=== PATIENT | female | born 1945 | race Caucasian/White ===

== ENCOUNTER 2017-07-26 17:56 | Inpatient (IN) ==
[2017-07-26] MEDS ORDERED: Isovue-370 500 ML INFUS..BTL IV ONE (18:07)
[2017-07-26] MEDS ORDERED: Ipratropium/Albuterol Neb 3 ML IH ONE (18:11)
--- NOTE | 2017-07-26 18:11 | Emergency Department Note ---
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 Patient has not been on chemotherapy secondary to complications. She did have a partial pneumonectomy secondary to her metastasis. She is undergone internal radiation which has caused her to have chronic diarrhea. The patient has had weakness and fatigue with decreased appetite for the last week. She presents to the emergency department today for episodes of chest pain in the left side of her chest which have lasted for minutes and self resolved. Patient describes approximately 3 episodes. Seen by PCP for the weakness which has not resolved and told to follow-up in a month. Patient concerned that she is not feeling well and now develops this chest pain. She has associated some breath which she blames on her emphysema. Patient received aspirin by EMS. Severity scale (1-10): 6 - Related Data Home Medications Medication Instructions Recorded Confirmed Citalopram [CeleXA] 40 mg PO DAILY 01/09/15 10/24/16 Fluticasone Propionate Nasal 2 spray NS DAILY 01/09/15 10/24/16 [Flonase] Ranitidine HCl [Zantac] 150 mg PO BID 01/09/15 10/24/16 [place] Oil/[place]-3 Fatty Acids 2 each PO TID 01/09/15 10/24/16 [Fish Oil 500 mg Softgel] Vitamin B Complex [B Complex] 1 each PO DAILY 01/09/15 10/24/16 Vitamin E 400 unit PO DAILY 01/09/15 10/24/16 Diltiazem HCl [Diltiazem 24Hr Cd] 120 mg PO DAILY 05/03/15 10/24/16 Bumetanide [Bumex] 2 mg PO DAILY 10/31/15 10/24/16 LORazepam [Ativan] 1 mg PO HS 10/31/15 10/24/16 Montelukast [Singulair] 10 mg PO DAILY 10/31/15 10/24/16 Budesonide/Formoterol 80/4.5 0 gm IH BIDR 04/25/16 10/24/16 [Symbicort 80/4.5] GuaiFENesin ER [Mucinex] 1,200 mg PO DAILY 10/24/16 10/24/16 Previous Rx's Medication Instructions Recorded predniSONE [Prednisone] 10 mg PO DAILY #21 tablet 11/25/14 Ibuprofen [Motrin] 600 mg PO Q8HR PRN #14 tablet 12/28/14 levoFLOXacin [Levaquin] 500 mg PO DAILY #7 tablet 10/24/16 Allergies Allergy/AdvReac Type Severity Reaction Status Date / Time acetaminophen [From Vicodin] Allergy Hives Verified 04/25/16 09:59 hydrocodone [From Vicodin] Allergy Hives Verified 04/25/16 09:59 Megestrol [From Megace] Allergy See Verified 04/25/16 09:59 Comments Penicillins Allergy Hives Verified 04/25/16 09:59 shellfish derived Allergy Hives Verified 04/25/16 09:59 Sulfa (Sulfonamide Allergy Hives Verified 04/25/16 09:59 Antibiotics) Review of Systems: CONSTITUTIONAL: Weakness and fatigue HEENT: Eyes: No visual changes. Ears, Nose, Throat: No hearing loss, difficulty talking or unable to swallow. SKIN: No rash or itching. CARDIOVASCULAR: Chest pain. RESPIRATORY: Shortness of breath without cough or sputum production GASTROINTESTINAL: Nausea and decreased appetite with diarrhea GENITOURINARY: No burning on urination or hematuria. NEUROLOGICAL: No headache, dizziness, syncope, paralysis, ataxia, numbness or tingling in the extremities. No change in bowel or bladder control. MUSCULOSKELETAL: No muscle pain, back pain, joint pain or stiffness. 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 Wearing home oxygen Head: Normocephalic Atraumatic Eyes: PERRL, EOMI ENT: Airway patent, no stridor Neck: supple, no meningismus Chest: Mild expiratory wheezing Cardiac: Regular rate and rhythm, no murmurs, rubs or gallops Abdomen: soft, nontender, nondistended; no guarding, rebound, or tenderness to percussion Musculoskeletal: Lymphedema to the left lower extremity which is acute on chronic Skin: No rash, normal skin tone Neuro: Alert and Oriented to person, place, and time; No focal deficit, CN 2-12 symmetric and intact - General Limitations: no limitations General appearance: alert, in no apparent distress Course Course Narrative: Patient's blood work, imaging, urinalysis has been ordered. The case was discussed with the hospitalist, Virgil, who is at bedside to hear about her case. Case will be signed out to the oncoming physician Dr. Whittington. The labs only to be followed up on any abnormal results will need to be addressed prior to placing the admission order. - Consultations Consultation #1: The case was discussed with the hospitalist, Dr. Herman, pending any abnormal tests or evaluation. Vital Signs Temperature 98.3 F 07/26/17 17:57 Pulse Rate 117 07/26/17 17:57 Respiratory Rate 22 07/26/17 17:57 Blood Pressure 140/108 07/26/17 17:57 O2 Sat by Pulse Oximetry 93 07/26/17 17:57 Temperature 98.3 F 07/26/17 17:57 Pulse Rate 117 07/26/17 17:57 Respiratory Rate 22 07/26/17 17:57 Blood Pressure 140/108 07/26/17 17:57 O2 Sat by Pulse Oximetry 93 07/26/17 17:57 Oxygen Delivery Oxygen Delivery Nasal Cannula Chest Pain - EKG Data EKG attestation: Yes I reviewed and interpreted this EKG. EKG results narrative: EKG shows atrial tachycardia with a rate of 111. HI 200. QRS 106. QTC 433. Patient has no significant ST elevations or depressions. Patient does have poor R-wave progression as well as deep S waves in the inferior leads. T-wave inversions in 1 and aVL. No significant changes compared to 11/25/14.
--- NOTE | 2017-07-26 18:16 | Emergency Department Note ---
Disposition Clinical Impression: Weakness Chest pain Qualifiers: Chest pain type: unspecified Qualified Code(s): R07.9 - Chest pain, unspecified Disposition: Still a Patient Condition: Fair Referrals: Greg Jay Jr, MD [Primary Care Provider] - Forms: ED Satisfaction Letter General Adult HPI - General Chief complaint: ED Chest Pain Stated complaint: Chest Pain Time Seen by Provider: 07/26/17 18:03 Source: EMS Limitations: no limitations - History of Present Illness Pain Scale: 6 - Related Data Home Medications Medication Instructions Recorded Confirmed Citalopram [CeleXA] 40 mg PO DAILY 01/09/15 10/24/16 Fluticasone Propionate Nasal 2 spray NS DAILY 01/09/15 10/24/16 [Flonase] Ranitidine HCl [Zantac] 150 mg PO BID 01/09/15 10/24/16 [place] Oil/[place]-3 Fatty Acids 2 each PO TID 01/09/15 10/24/16 [Fish Oil 500 mg Softgel] Vitamin B Complex [B Complex] 1 each PO DAILY 01/09/15 10/24/16 Vitamin E 400 unit PO DAILY 01/09/15 10/24/16 Diltiazem HCl [Diltiazem 24Hr Cd] 120 mg PO DAILY 05/03/15 10/24/16 Bumetanide [Bumex] 2 mg PO DAILY 10/31/15 10/24/16 LORazepam [Ativan] 1 mg PO HS 10/31/15 10/24/16 Montelukast [Singulair] 10 mg PO DAILY 10/31/15 10/24/16 Budesonide/Formoterol 80/4.5 0 gm IH BIDR 04/25/16 10/24/16 [Symbicort 80/4.5] GuaiFENesin ER [Mucinex] 1,200 mg PO DAILY 10/24/16 10/24/16 Previous Rx's Medication Instructions Recorded predniSONE [Prednisone] 10 mg PO DAILY #21 tablet 11/25/14 Ibuprofen [Motrin] 600 mg PO Q8HR PRN #14 tablet 12/28/14 levoFLOXacin [Levaquin] 500 mg PO DAILY #7 tablet 10/24/16 Allergies Allergy/AdvReac Type Severity Reaction Status Date / Time acetaminophen [From Vicodin] Allergy Hives Verified 02/16/17 09:59 hydrocodone [From Vicodin] Allergy Hives Verified 04/25/16 09:59 Megestrol [From Megace] Allergy See Verified 04/25/16 09:59 Comments Penicillins Allergy Hives Verified 04/25/16 09:59 shellfish derived Allergy Hives Verified 04/25/16 09:59 Sulfa (Sulfonamide Allergy Hives Verified 04/25/16 09:59 Antibiotics) Past Medical History - Past Medical History Medical history: Reports: asthma, cancer, COPD, hyperlipidemia, hypertension, peripheral artery disease, other Surgical history: Reports: appendectomy, hysterectomy Psychiatric history: Reports: anxiety [employer]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 - Social History Smoking Status: Never smoker Smokeless Tobacco Status: No Alcohol use: Reports: none Drug use: Reports: none Physical Exam - General Limitations: no limitations General appearance: alert, in no apparent distress Course Vital Signs Temperature 98.3 F 07/26/17 17:57 Pulse Rate 117 07/26/17 17:57 Respiratory Rate 22 07/26/17 17:57 Blood Pressure 140/108 07/26/17 17:57 O2 Sat by Pulse Oximetry 93 07/26/17 17:57 Temperature 98.3 F 07/26/17 17:57 Pulse Rate 117 07/26/17 17:57 Respiratory Rate 22 07/26/17 17:57 Blood Pressure 140/108 07/26/17 17:57 O2 Sat by Pulse Oximetry 93 07/26/17 17:57 Oxygen Delivery Oxygen Delivery Nasal Cannula Attestation Statement - Attestation Attestation: I examined this patient and my medical decision-making was reviewed with the Resident Physician. I agree with the documented findings, disposition and treatment plan as described except to the extent set forth below. Patient presents to the ED with generalized weakness. Not feeling well. Onset a couple weeks ago but is getting worse. She is having some chest pain. She short of breath. She is coughing. No fever but she still. She has a history of endometrial cancer that metastasized to her lung but is felt to be in remission. On examination she is in no acute distress. He is diminished but clear. She is noted to have 3+ pitting edema to her lower extremities left greater than right. Plan. Cardiac workup. Ultrasound rule out DVT. Likely admission.
[2017-07-26 18:48] LABS: Basophils % 0.2 %; Eosinophils % 0.1 %; Hematocrit 35.8 % (35.3-44.9); Hemoglobin 12.7 g/dL (11.5-15.4); Immature Granulocytes % 0.4 % (0-4); Lymphocytes # 0.9 K/mcL (0.6-4.6); Lymphocytes % 11.1 %; Mean Corpuscular HGB Conc 35.5 g/dL (31.6-35.5); Mean Corpuscular Hemoglobin 34.6 pg (28.0-33.3); Mean Corpuscular Volume 97.5 fL (83.0-100.0); Monocytes # 0.5 K/mcL (0.0-1.3); Monocytes % 6.1 %; Neutrophils # 6.8 K/mcL (1.6-8.9); Platelet Count 315 K/mcL (140-400); Red Blood Count 3.67 M/mcL (3.82-4.97); Red Cell Distribution Width 13.1 % (11.5-14.5); Segmented Neutrophils % 82.1 %
[2017-07-26 18:49] LABS: Bilirubin,Urine Negative (Negative); Blood,Urine Negative (Negative); Clarity,Urine Clear (Clear); Color,Urine Yellow (Yellow); Glucose,Urine (UA) Normal (Normal); Ketones,Urine Negative (Negative); Leukocyte Esterase,Urine Negative (Negative); Nitrite,Urine Negative (Negative); Protein,Urine Negative (Neg-Trace); Specific Gravity,Urine 1.009 (1.010-1.025); Urobilinogen,Urine Normal (Normal)
[2017-07-26 18:55] LABS: Prothrombin Time 11.2 Seconds (9.4-12.1)
[2017-07-26 19:10] LABS: Troponin I < 0.03 ng/mL (< 0.04)
[2017-07-26 19:11] LABS: Alanine Aminotransferase 20 Units/L (7-52); Albumin 4.2 g/dL (3.5-5.7); Albumin/Globulin Ratio 1.8 (1.1-2.2); Alkaline Phosphatase 45 Units/L (34-104); Aspartate Amino Transferase 18 Units/L (13-39); BUN/Creatinine Ratio 15 (6-26); Bilirubin,Total 0.4 mg/dL (0.3-1.0); Blood Urea Nitrogen 13 mg/dL (8-23); Calcium 9.7 mg/dL (8.6-10.3); Carbon Dioxide 25 mEq/L (23-29); Chloride 107 mEq/L (98-107); Globulin 2.4 g/dL (2.4-3.5); Glucose 132 mg/dL (70-105); Osmolality,Calculated 298 (280-300); Potassium 3.7 mEq/L (3.5-5.1); Sodium 143 mEq/L (136-145); Total Protein 6.6 g/dL (6.4-8.9); eGFR For African Americans > 60 (> 60); eGFR For Non-African Americans > 60 (> 60)
--- NOTE | 2017-07-26 19:13 | Internal Med History&Physical ---
Date of Encounter: 07/26/17 Time of Encounter: 08:00 Internal Medicine - H&P: HPI Chief complaint: CP History of present illness: Ms. Mcnulty is a 72 year old female Patient with PMH of metastatic endometrial cancer with metastasis to the liver and lung s/p partial pneumonectomy secondary to her metastasis. She is undergone chemotherapy as well as internal radiation which has caused her to have chronic diarrhea and was D/C. She has no significant cardiac history and presented today with 12-24 hrs history of chest discomfort and generalized weakness. She states the chest pain is intermittent, left-sided pressure like in character, She denies associated shortness of breath, nausea, vomiting, sweating. She also c/p of worsening of left LE edema. Chest x-ray was as CTA to R/O PE . Doppler of left lower extremity negative for DVT. Her ECGs with no significant ST-T wave changes, and cardiac enzyme is normal. Patient is admitted at this time for chest pain rule out ACS. Past Med Surg Social Fam HX - Past Medical History Medical history: asthma, cancer, COPD, hyperlipidemia, hypertension, peripheral artery disease, other Psychiatric history: anxiety - Past Surgical History Surgical History: appendectomy, hysterectomy - Social History Smoking Status: Never smoker Smokeless Tobacco Status: No Alcohol use: none Drug use: none - Family History Father Hx Family Cardiac Disorders: Yes Mother Hx Family Neurologic Disorders: Yes (dementia) Internal Medicine - H&P: Meds predniSONE [PredniSONE] 10 mg PO DAILY #21 tablet 11/25/14 [Rx] Vitamin B Complex [B Complex] 1 each PO DAILY 01/09/15 [History] Vitamin E 400 unit PO DAILY 01/09/15 [History] Bumetanide [Bumex] 1 mg PO BID 10/31/15 [History] LORazepam [Ativan] 1 mg PO HS 10/31/15 [History] Montelukast [Singulair] 10 mg PO DAILY 10/31/15 [History] GuaiFENesin ER [Mucinex] 1,200 mg PO BID 10/24/16 [History] Budesonide/Formoterol 160/4.5 [Symbicort 160/4.5] 2 puff IH BIDR 07/31/17 [ History] Calcium Polycarbophil [Fiber Laxative] 625 mg PO DAILY 07/31/17 [History] Citalopram Hydrobromide [Citalopram HBr] 40 mg PO DAILY 07/31/17 [History] Diltiazem CD (24hr) [Cardizem CD] 240 mg PO DAILY 07/31/17 [History] Fluticasone Propionate Nasal [Flonase] 2 spray NS DAILY 07/31/17 [History] [place]-3/Dha/Epa/Fish Oil [Fish Oil 1,000 mg Softgel] 2 cap PO TID 07/31/17 [ History] Potassium Chloride [K-Tab ER] 20 meq PO DAILY 07/31/17 [History] Ranitidine HCl [Heartburn Relief] 150 mg PO BID 07/31/17 [History] Aspirin 81 mg PO DAILY #30 tab.chew 08/04/17 [Rx] Atorvastatin [Lipitor] 20 mg PO HS #30 tablet 08/04/17 [Rx] Atorvastatin [Lipitor] 20 mg PO HS #60 tablet 08/04/17 [Rx] Doxycycline 100 mg PO DAILY #6 capsule 08/04/17 [Rx] Nitroglycerin 0.4 mg SL Q5MIN #30 tab.subl 08/04/17 [Rx] 3 Allergy/AdvReac Type Severity Reaction Status Date / Time hydrocodone [From Vicodin] Allergy Hives Verified 07/31/17 13:04 Megestrol [From Megace] Allergy See Verified 07/31/17 13:04 Comments Penicillins Allergy Hives Verified 07/31/17 13:04 shellfish derived Allergy Hives Verified 07/31/17 13:04 Sulfa (Sulfonamide Allergy Hives Verified 07/31/17 13:04 Antibiotics) All Systems PM: A 10-system review of systems was performed and is negative for pertinent findings except as documented above in the HPI. - Constitutional Constitutional: fatigue, lethargy, weakness, no chills, no fever(s), no night sweats - Cardiovascular Cardiovascular ROS IM: chest pain, edema, no diaphoresis, no dyspnea, no lightheadedness, no palpitations, no syncope - Respiratory Respiratory: no cough, no dyspnea, no wheezing, no excessive phlegm production - Gastrointestinal Gastrointestinal: no abdominal pain, no diarrhea, no hematemesis, no hematochezia, no melena, no nausea, no vomiting - Hematologic/Lymphatic Hematologic/Lymphatic: no easy bruising - Constitutional Vitals: Temp Pulse Resp BP Pulse Ox 98.3 F 117 18 140/108 98 07/26/17 17:57 07/26/17 17:57 07/26/17 18:41 07/26/17 17:57 07/26/17 18:41 General appearance: Present: A&O X 3 - Head Head exam: Present: atraumatic, normocephalic - Eye Eye exam: Present: PERRL, conjuntiva pink, sclera anicteric Pupils: Present: PERRL - Neck Neck exam general surgery: Present: supple, trachea midline. Absent: lymphadenopathy - Respiratory Respiratory exam: Present: CTAB. Absent: accessory muscle use, rales, rhonchi, wheezes - Cardiovascular Cardiovascular exam: Present: RRR, +S1, +S2. Absent: diastolic murmur, gallop, rubs, systolic murmur - GI/Abdominal GI/Abdominal exam: Present: normal bowel sounds, soft, no peritoneal signs. Absent: distended, tenderness - Extremities Exam Extremities exam: Present: warm, radial pulses palpable and symmetrical. Absent : calf tenderness, cyanotic, pedal edema - Neurological Exam Neurological exam: Present: CN II-XII intact, oriented X3, no focal deficits. Absent: pronater drift, facial droop, speech deficit Internal Med - H&P Results - Labs CBC & Chem 7: 07/27/17 08:36 07/27/17 08:36 Labs: Short CBC 07/26/17 Range/Units 18:04 WBC 8.2 (4.3-11.1) K/mcL Hgb 12.7 (11.5-15.4) g/dL Hct 35.8 (35.3-44.9) % Plt Count 315 (140-400) K/mcL Neutrophils # 6.8 (1.6-8.9) K/mcL BMP 07/26/17 18:04 Sodium 143 Potassium 3.7 Chloride 107 Carbon Dioxide 25 BUN 13 Creatinine 0.87 Glucose 132 H Calcium 9.7 Cardiac Enzymes 07/26/17 Range/Units 18:04 Troponin I < 0.03 (< 0.04) ng/mL Liver Function 07/26/17 Range/Units 18:04 Total Bilirubin 0.4 (0.3-1.0) mg/dL AST 18 (13-39) Units/L ALT 20 (7-52) Units/L Alkaline Phosphatase 45 (34-104) Units/L Albumin 4.2 (3.5-5.7) g/dL Urine 07/26/17 Range/Units 18:39 Urine Color Yellow (Yellow) Urine Clarity Clear (Clear) Urine pH 7.0 (5.0-8.0) pH Units Ur Specific [place] 1.009 L (1.010-1.025) Urine Protein Negative (Neg-Trace) mg/dL Urine Glucose (UA) Normal (Normal) mg/dL - Impressions ITS Impressions Chest X-Ray 07/26/17 18:04 IMPRESSION: Stable chest demonstrating elevation of the right hemidiaphragm. D/ / David Nagel MD / David Nagel MD Interpreting Provider: David Nagel MD - Assessment and plan (1) Chest pain Status: Acute Assessment and plan: ASSESSMENT: - Chest pain DD *CAD *Muskuloskeletal CP - myofascial strain, costochondritis *GERD *Esophageal spasm *Pericarditis - unlikely *Pneumonia - no infiltrate on CXR PLAN: - cardiac enzymes x 2 q 8 hr - EKG now and in AM - ASA - O2 by NC to keep SpO2 greater than 92% - UA - CBCD, BMP in AM - Fasting lipids - Morphine 2 mg IV q 2-4 hr PRN chest pain - Tylenol 650 mg PO q 4-6 hr PRN headache - Home meds (check list) - Heparin 5000 U SQ BID - 2D Echo - Cardiology consult Qualifiers: Chest pain type: unspecified Qualified Code(s): R07.9 - Chest pain, unspecified (2) Weakness Status: Acute Assessment and plan: We will consult PT and OT (3) Swelling Status: Chronic Assessment and plan: She stated that her LLEs edema was chronic due to chemotherapy and it actually improved after D/C it. LLEs Doppler U/S is negative for DVT. (4) Endometrial cancer Status: Chronic Assessment and plan: Both family at bedside and family declined onc consultation, she F/u at [place]. (5) COPD (chronic obstructive pulmonary disease) Status: Acute Assessment and plan: We will cont home inhalers, no evidence of acute exacerbation Qualifiers: COPD type: unspecified COPD Qualified Code(s): J44.9 - Chronic obstructive pulmonary disease, unspecified (6) Hypertension Status: Acute Assessment and plan: She is not on antihypertensive meds, blood pressure is reasonably controlled. Qualifiers: Hypertension type: essential hypertension Qualified Code(s): I10 - Essential (primary) hypertension (7) Anxiety Status: Acute (8) Hyperlipidemia Status: Acute Qualifiers: Hyperlipidemia type: unspecified Qualified Code(s): E78.5 - Hyperlipidemia , unspecified (9) DVT prophylaxis Status: Acute Assessment and plan: We will start SC heparin. - Time Spent With Patient Total time spent is greater than 50% in coordination of care (as documented) at patient's floor/unit and/or counseling patient:
[2017-07-26 19:24] LABS: Thyroid Stimulating Hormone 0.917 mcIU/mL (0.340-5.600)
--- NOTE | 2017-07-26 21:02 | Emergency Department Note ---
Disposition Clinical Impression: Weakness Chest pain Qualifiers: Chest pain type: unspecified Qualified Code(s): R07.9 - Chest pain, unspecified Disposition: Admitted As Inpatient Condition: Fair Time of Disposition: 21:56 Chest Pain HPI - General Chief Complaint: ED Chest Pain Stated Complaint: Chest Pain Time Seen by Provider: 07/26/17 18:03 Source: EMS Limitations: no limitations Vital Signs Reviewed: Yes Nursing Notes Reviewed: Yes - History of Present Illness Severity scale (1-10): 6 - Related Data Home Medications Medication Instructions Recorded Confirmed Citalopram [CeleXA] 40 mg PO DAILY 01/09/15 10/24/16 Fluticasone Propionate Nasal 2 spray NS DAILY 01/09/15 10/24/16 [Flonase] Ranitidine HCl [Zantac] 150 mg PO BID 01/09/15 10/24/16 [place] Oil/[place]-3 Fatty Acids 2 each PO TID 01/09/15 10/24/16 [Fish Oil 500 mg Softgel] Vitamin B Complex [B Complex] 1 each PO DAILY 01/09/15 10/24/16 Vitamin E 400 unit PO DAILY 01/09/15 10/24/16 Diltiazem HCl [Diltiazem 24Hr Cd] 120 mg PO DAILY 05/03/15 10/24/16 Bumetanide [Bumex] 2 mg PO DAILY 10/31/15 10/24/16 LORazepam [Ativan] 1 mg PO HS 10/31/15 10/24/16 Montelukast [Singulair] 10 mg PO DAILY 10/31/15 10/24/16 Budesonide/Formoterol 80/4.5 0 gm IH BIDR 04/25/16 10/24/16 [Symbicort 80/4.5] GuaiFENesin ER [Mucinex] 1,200 mg PO DAILY 10/24/16 10/24/16 Previous Rx's Medication Instructions Recorded predniSONE [Prednisone] 10 mg PO DAILY #21 tablet 11/25/14 Ibuprofen [Motrin] 600 mg PO Q8HR PRN #14 tablet 12/28/14 levoFLOXacin [Levaquin] 500 mg PO DAILY #7 tablet 10/24/16 Allergies Allergy/AdvReac Type Severity Reaction Status Date / Time acetaminophen [From Vicodin] Allergy Hives Verified 04/25/16 09:59 hydrocodone [From Vicodin] Allergy Hives Verified 04/25/16 09:59 Megestrol [From Megace] Allergy See Verified 04/25/16 09:59 Comments Penicillins Allergy Hives Verified 04/25/16 09:59 shellfish derived Allergy Hives Verified 04/25/16 09:59 Sulfa (Sulfonamide Allergy Hives Verified 04/25/16 09:59 Antibiotics) Chest Pain PMH - Past Medical History Medical history: Reports: asthma, cancer, COPD, hyperlipidemia, hypertension, peripheral artery disease, other Surgical history: Reports: appendectomy, hysterectomy Psychiatric history: Reports: anxiety [employer]OR [employer] LOGISTICS history: Reports: non-contributory - Social History Smoking Status: Never smoker Alcohol use: Reports: none Drug use: Reports: none Physical Exam - General Limitations: no limitations General appearance: alert, in no apparent distress - Head Head exam: atraumatic, normocephalic, normal inspection - Eye Eye exam: Present: normal appearance, PERRL, EOMI - ENT ENT exam: normal exam, normal oropharynx, mucous membranes moist - Neck Neck exam: Present: normal inspection, full ROM, trachea midline - Chest Chest inspection: Present: normal inspection, symmetric chest wall rise. Absent : tenderness, rash - Respiratory Respiratory exam: Present: normal lung sounds bilaterally - Cardiovascular Cardiovascular exam: Present: normal rhythm, tachycardia, normal heart sounds - Abdominal Exam Abdominal exam: Present: soft, Non-Tender. Absent: tenderness, distention, guarding, rebound, rigidity - Extremities Exam Extremities exam: Present: normal inspection, full ROM, pedal edema (edema of left leg). Absent: tenderness, calf tenderness - Neurological Exam Neurological exam: Present: alert, oriented X3 - Psychiatric Psychiatric exam: Present: normal affect, normal mood Course Course Narrative: Patient was a sign out from previous team, Dr. Woodward and Dr. Jamison, please see their notes for any additional detail. In summary, patient is a 72-year-old female who presented today due to chest discomfort and generalized weakness. She states that over the past 12-24 hours, she has had intermittent episodes of chest pain, left-sided, sitting as a pressure, lasting minutes at a time and then going away. Denies any worsening with exertion, denies any associated shortness of breath, nausea, vomiting, sweating. She denied any history of any previous [facility] or cardiac stents. During the same. She has also felt generally fatigued. Previous team had already ordered basic blood work, EKG, chest x-ray , CTA of the chest. Patient does have a history of metastatic endometrial cancer which prompted them to think about PE. Previous team had already talked with hospitalist prior to labs resulting and patient was accepted for admission by Dr. Herman. On my assessment, patient continued to have no chest pain while under my care. Lungs remained clear. Abdomen soft and nontender. Basic blood work showed no elevation in troponin, no major abnormality. Chest x-ray negative for any acute process. CTA negative for any PE or pneumonia. Doppler of left lower extremity was ordered due to edema, negative for DVT. Patient is admitted at this time for chest pain rule out. Chest X-Ray 07/26/17 18:04 IMPRESSION: Stable chest demonstrating elevation of the right hemidiaphragm. D/ / David Nagel MD / David Nagel MD Interpreting Provider: David Nagel MD Chest CTA 07/26/17 18:07 IMPRESSION: 1. No evidence of pulmonary embolism or other acute process in the chest. 2. No evidence of residual or recurrent neoplastic disease. 3. Status post left upper lobectomy. D/ / Shaquille Robertson MD / Shaquille Robertson MD Interpreting Provider: Shaquille Robertson MD Vital Signs Temperature 98.3 F 07/26/17 17:57 Pulse Rate 117 07/26/17 17:57 Respiratory Rate 22 07/26/17 17:57 Blood Pressure 140/108 07/26/17 17:57 O2 Sat by Pulse Oximetry 93 07/26/17 17:57 Temperature 98.3 F 07/26/17 17:57 Pulse Rate 70 07/26/17 21:15 Respiratory Rate 20 07/26/17 21:15 Blood Pressure 172/100 07/26/17 21:15 O2 Sat by Pulse Oximetry 94 07/26/17 21:15 Oxygen Delivery Oxygen Delivery Nasal Cannula Chest Pain - MDM Narrative Medical decision making narrative: Patient was a sign out from previous team, Dr. Woodward and Dr. Jamison, please see their notes for any additional detail. In summary, patient is a 72-year-old female who presented today due to chest discomfort and generalized weakness. She states that over the past 12-24 hours, she has had intermittent episodes of chest pain, left-sided, sitting as a pressure, lasting minutes at a time and then going away. Denies any worsening with exertion, denies any associated shortness of breath, nausea, vomiting, sweating. She denied any history of any previous [facility] or cardiac stents. During the same. She has also felt generally fatigued. Previous team had already ordered basic blood work, EKG, chest x-ray , CTA of the chest. Patient does have a history of metastatic endometrial cancer which prompted them to think about PE. Previous team had already talked with hospitalist prior to labs resulting and patient was accepted for admission by Dr. Herman. On my assessment, patient continued to have no chest pain while under my care. Lungs remained clear. Abdomen soft and nontender. Basic blood work showed no elevation in troponin, no major abnormality. Chest x-ray negative for any acute process. CTA negative for any PE or pneumonia. Doppler of left lower extremity was ordered due to edema, negative for DVT. Patient is admitted at this time for chest pain rule out. - Medical Records Medical records reviewed: Yes I reviewed the patient's medical records. - Lab Data Lab results reviewed: Yes I reviewed the patient's lab results. Result diagrams: 07/26/17 18:04 07/26/17 18:04 Lab Results 07/26/17 07/26/17 07/26/17 Range/Units 18:04 18:04 18:05 WBC 8.2 (4.3-11.1) K/mcL RBC 3.67 L (3.82-4.97) M/mcL Hgb 12.7 (11.5-15.4) g/dL Hct 35.8 (35.3-44.9) % MCV 97.5 (83.0-100.0) fL MCH 34.6 H (28.0-33.3) pg MCHC 35.5 (31.6-35.5) g/dL RDW 13.1 (11.5-14.5) % Plt Count 315 (140-400) K/mcL MPV 9.0 L (9.4-12.4) fL Immature Gran % 0.4 (0-4) % Seg Neutrophils % 82.1 % Lymphocytes % 11.1 % Monocytes % 6.1 % Eosinophils % 0.1 % Basophils % 0.2 % Neutrophils # 6.8 (1.6-8.9) K/mcL Lymphocytes # 0.9 (0.6-4.6) K/mcL Monocytes # 0.5 (0.0-1.3) K/mcL Eosinophils # 0.0 (0.0-0.6) K/mcL Basophils # 0.0 (0.0-0.2) K/mcL PT (9.4-12.1) Seconds INR APTT (26.0-36.0) Seconds Sodium 143 (136-145) mEq/L Potassium 3.7 (3.5-5.1) mEq/L Chloride 107 (98-107) mEq/L Carbon Dioxide 25 (23-29) mEq/L BUN 13 (8-23) mg/dL Creatinine 0.87 (0.60-1.20) mg/dL Est GFR ( Amer) > 60 (> 60) Est GFR (Non-Af Amer) > 60 (> 60) BUN/Creatinine Ratio 15 (6-26) Glucose 132 H (70-105) mg/dL Calculated Osmolality 298 (280-300) Calcium 9.7 (8.6-10.3) mg/dL Total Bilirubin 0.4 (0.3-1.0) mg/dL AST 18 (13-39) Units/L ALT 20 (7-52) Units/L Alkaline Phosphatase 45 (34-104) Units/L Troponin I < 0.03 (< 0.04) ng/mL B-Natriuretic Peptide 123 H (Less than 100) pg/mL Serum Total Protein 6.6 (6.4-8.9) g/dL Albumin 4.2 (3.5-5.7) g/dL Globulin 2.4 (2.4-3.5) g/dL Albumin/Globulin Ratio 1.8 (1.1-2.2) TSH 0.917 (0.340-5.600) mcIU/mL Urine Color (Yellow) Urine Clarity (Clear) Urine pH (5.0-8.0) pH Units Ur Specific [place] (1.010-1.025) Urine Protein (Neg-Trace) mg/dL Urine Glucose (UA) (Normal) mg/dL Urine Ketones (Negative) mg/dL Urine Blood (Negative) Urine Nitrite (Negative) Urine Bilirubin (Negative) Urine Urobilinogen (Normal) mg/dL Ur Leukocyte Esterase (Negative) Ur Culture Indicated? (NO) 07/26/17 07/26/17 Range/Units 18:09 18:39 WBC (4.3-11.1) K/mcL RBC (3.82-4.97) M/mcL Hgb (11.5-15.4) g/dL Hct (35.3-44.9) % MCV (83.0-100.0) fL MCH (28.0-33.3) pg MCHC (31.6-35.5) g/dL RDW (11.5-14.5) % Plt Count (140-400) K/mcL MPV (9.4-12.4) fL Immature Gran % (0-4) % Seg Neutrophils % % Lymphocytes % % Monocytes % % Eosinophils % % Basophils % % Neutrophils # (1.6-8.9) K/mcL Lymphocytes # (0.6-4.6) K/mcL Monocytes # (0.0-1.3) K/mcL Eosinophils # (0.0-0.6) K/mcL Basophils # (0.0-0.2) K/mcL PT 11.2 (9.4-12.1) Seconds INR 1.0 APTT 32.0 (26.0-36.0) Seconds Sodium (136-145) mEq/L Potassium (3.5-5.1) mEq/L Chloride (98-107) mEq/L Carbon Dioxide (23-29) mEq/L BUN (8-23) mg/dL Creatinine (0.60-1.20) mg/dL Est GFR ( Amer) (> 60) Est GFR (Non-Af Amer) (> 60) BUN/Creatinine Ratio (6-26) Glucose (70-105) mg/dL Calculated Osmolality (280-300) Calcium (8.6-10.3) mg/dL Total Bilirubin (0.3-1.0) mg/dL AST (13-39) Units/L ALT (7-52) Units/L Alkaline Phosphatase (34-104) Units/L Troponin I (< 0.04) ng/mL B-Natriuretic Peptide (Less than 100) pg/mL Serum Total Protein (6.4-8.9) g/dL Albumin (3.5-5.7) g/dL Globulin (2.4-3.5) g/dL Albumin/Globulin Ratio (1.1-2.2) TSH (0.340-5.600) mcIU/mL Urine Color Yellow (Yellow) Urine Clarity Clear (Clear) Urine pH 7.0 (5.0-8.0) pH Units Ur Specific [place] 1.009 L (1.010-1.025) Urine Protein Negative (Neg-Trace) mg/dL Urine Glucose (UA) Normal (Normal) mg/dL Urine Ketones Negative (Negative) mg/dL Urine Blood Negative (Negative) Urine Nitrite Negative (Negative) Urine Bilirubin Negative (Negative) Urine Urobilinogen Normal (Normal) mg/dL Ur Leukocyte Esterase Negative (Negative) Ur Culture Indicated? NO (NO) - Radiology Data Radiology results reviewed: Yes I reviewed the patient's radiology results. Chest X-Ray 07/26/17 18:04 IMPRESSION: Stable chest demonstrating elevation of the right hemidiaphragm. D/ / David Nagel MD / David Nagel MD Interpreting Provider: David Nagel MD Chest CTA 07/26/17 18:07 IMPRESSION: 1. No evidence of pulmonary embolism or other acute process in the chest. 2. No evidence of residual or recurrent neoplastic disease. 3. Status post left upper lobectomy. D/ / Shaquille Robertson MD / Shaquille Robertson MD Interpreting Provider: Shaquille Robertson MD - EKG Data EKG attestation: Yes I reviewed and interpreted this EKG.
[2017-07-26] MEDS ORDERED: Naloxone 0.4 MG/ML INJ IVP PRN (21:34)
[2017-07-27] MEDS ORDERED: *HR* LORazepam 1 MG TABLET PO PRN (01:04)
[2017-07-27] MEDS: 0.9 % Sodium Chloride 1,000 ML IVC SCH ×2 (01:12→09:55)
[2017-07-27] MEDS ORDERED: Famotidine 20 MG TABLET PO SCH (07:30)
[2017-07-27 07:42] VITALS: BP 160/84
[2017-07-27] MEDS ORDERED: Bumetanide 1 MG TABLET PO SCH (08:00)
[2017-07-27] MEDS ORDERED: *HR* Heparin 5,000 UNIT/ML VIAL SQ SCH (08:15)
[2017-07-27] MEDS ORDERED: Diltiazem CD (24hr) 120 MG CAPSULE PO SCH (09:00)
[2017-07-27] MEDS ORDERED: predniSONE 10 MG TABLET PO SCH (09:00)
[2017-07-27] MEDS ORDERED: Vitamin B Complex/Vit C/Vit E 1 EACH TABLET PO SCH (09:00)
[2017-07-27] MEDS ORDERED: Fluticasone Propionate Nasal 50 MCG/SPRAY BOTTLE NS SCH (09:00)
[2017-07-27 09:34] LABS: Basophils % 0.5 %; Eosinophils # 0.1 K/mcL (0.0-0.6); Eosinophils % 1.8 %; Hematocrit 34.3 % (35.3-44.9); Hemoglobin 11.9 g/dL (11.5-15.4); Immature Granulocytes % 0.3 % (0-4); Lymphocytes % 32.6 %; Mean Corpuscular HGB Conc 34.7 g/dL (31.6-35.5); Mean Corpuscular Hemoglobin 34.7 pg (28.0-33.3); Monocytes # 0.7 K/mcL (0.0-1.3); Monocytes % 11.8 %; Neutrophils # 3.3 K/mcL (1.6-8.9); Platelet Count 280 K/mcL (140-400); Red Blood Count 3.43 M/mcL (3.82-4.97); Red Cell Distribution Width 13.2 % (11.5-14.5)
[2017-07-27 09:38] LABS: INR 1.1; Prothrombin Time 12.1 Seconds (9.4-12.1)
[2017-07-27 09:41] LABS: Activated Partial Thrombo Time 31.3 Seconds (26.0-36.0)
[2017-07-27 09:50] LABS: Alanine Aminotransferase 16 Units/L (7-52); Albumin 3.5 g/dL (3.5-5.7); Albumin/Globulin Ratio 1.5 (1.1-2.2); Alkaline Phosphatase 34 Units/L (34-104); Aspartate Amino Transferase 16 Units/L (13-39); BUN/Creatinine Ratio 15 (6-26); Bilirubin,Total 0.5 mg/dL (0.3-1.0); Blood Urea Nitrogen 11 mg/dL (8-23); Calcium 8.8 mg/dL (8.6-10.3); Carbon Dioxide 27 mEq/L (23-29); Chloride 111 mEq/L (98-107); Chol/HDL Ratio 2.9 (0-4.9); Cholesterol 182 mg/dL (< 200); Globulin 2.4 g/dL (2.4-3.5); Glucose 74 mg/dL (70-105); HDL Cholesterol 62 mg/dL (40-59); LDL Cholesterol,Calculated 101 mg/dL (0-99); Magnesium 1.9 mg/dL (1.6-2.6); Osmolality,Calculated 296 (280-300); Phosphorous 3.2 mg/dL (2.7-4.5); Potassium 3.4 mEq/L (3.5-5.1); Sodium 144 mEq/L (136-145); Total Protein 5.9 g/dL (6.4-8.9); Triglycerides 95 mg/dL (< 150); eGFR For African Americans > 60 (> 60); eGFR For Non-African Americans > 60 (> 60)
[2017-07-27 09:59] LABS: Bilirubin,Urine Negative (Negative); Blood,Urine Negative (Negative); Clarity,Urine Clear (Clear); Color,Urine Yellow (Yellow); Glucose,Urine (UA) Normal (Normal); Ketones,Urine Negative (Negative); Leukocyte Esterase,Urine Negative (Negative); Nitrite,Urine Negative (Negative); Protein,Urine Negative (Neg-Trace); Specific Gravity,Urine 1.026 (1.010-1.025); Urobilinogen,Urine Normal (Normal)
[2017-07-27] MEDS ORDERED: Budesonide/Formoterol 80/4.5 MDI IH SCH (10:00)
--- NOTE | 2017-07-27 10:15 | Discharge Summary ---
- NOTES TO OUTPATIENT PROVIDER Notes to Outpatient Provider: Mrs. Mcnulty is a 72-year-old female presented with chest pain, CP rule out initiated; ECG negative for ischemia, troponins negative X3, CTA chest to rule out PE negative for PE. CP self-limited. Also concerning LLE swelling, Doppler evaluation negative for both deep vein/ superficial vein thrombosis. Patient has been instructed to f/u with PCP in one week Orders not resulted at time of discharge: Pending orders 07/27/17 08:06 Venous Doppler [EV venous imaging LE BI] Routine Date of Encounter: 07/27/17 Time of Encounter: 10:15 - Discharge Diagnosis (1) Chest pain Priority: Primary Status: Acute Assessment and Plan: ASSESSMENT: Atypical chest pain presentation-workup found to be negative, no prior history of MIs. Troponins negative 3, ECG without ischemic changes. Patient had CTA of chest ordered to rule out PE, found to be negative. LLE Doppler US ordered due to LLE swelling, found to be negative for both superficial/deep vein thrombosis. Patient with baseline shortness of breath, 2/2 partial lobectomy with cancer. Reports shortness of breath at baseline, no worse at this time. The patient is requesting to go home at this time. She has been informed us that would be beneficial for her to stay an additional day for further monitoring however, she continues to wish to discharge. Has remained stable throughout the stay and chest pain has subsided, weakness also improving. Patient being discharged with instructions to follow-up the ED showed chest pain returned. She has been instructed to see PCP within 1 week of discharge. Resume home medications and discharge. Qualifiers: Chest pain type: unspecified Qualified Code(s): R07.9 - Chest pain, unspecified (2) Endometrial cancer Priority: Secondary Status: Chronic Assessment and Plan: Family at bedside, both patient and family declined onc consultation, she F/u at [facility]. (3) Swelling Priority: Secondary Status: Chronic (4) Weakness Priority: Secondary Status: Acute Assessment and Plan: Patient reports that she feels like her weakness is improving since admission, has chronic weakness secondary to endometrial cancer with metastasis. (5) COPD (chronic obstructive pulmonary disease) Priority: Secondary Status: Acute Assessment and Plan: Not in acute exacerbation, resume bronchodilators Qualifiers: COPD type: unspecified COPD Qualified Code(s): J44.9 - Chronic obstructive pulmonary disease, unspecified (6) Hypertension Priority: Secondary Status: Acute Assessment and Plan: Stable, resume anti-HTN medications upon discharge Qualifiers: Qualified Code(s): I10 - Essential (primary) hypertension (7) Anxiety Priority: Secondary Status: Acute Assessment and Plan: Does not appear anxious this time, resume anxiolytics (8) Hyperlipidemia Priority: Secondary Status: Acute Qualifiers: Qualified Code(s): E78.5 - Hyperlipidemia, unspecified (9) DVT prophylaxis Priority: Secondary Status: Acute Hospital course: Ms. Mcnulty is a 72 year old female Discharge discussed with: patient, family, nurse - Time Spent with Patient Total time spent providing and/or coordinating discharge services: Less than 30 minutes - Discharge Medications Home Medications: predniSONE [PredniSONE] 10 mg PO DAILY #21 tablet 11/25/14 [Rx] Citalopram [CeleXA] 40 mg PO DAILY 01/09/15 [History] Fluticasone Propionate Nasal [Flonase] 2 spray NS DAILY 01/09/15 [History] Ranitidine HCl [Zantac] 150 mg PO BID 01/09/15 [History] [place] Oil/[place]-3 Fatty Acids [Fish Oil 500 mg Softgel] 2 each PO TID 01/09/15 [History] Vitamin B Complex [B Complex] 1 each PO DAILY 01/09/15 [History] Vitamin E 400 unit PO DAILY 01/09/15 [History] Diltiazem HCl [Diltiazem 24Hr Cd] 120 mg PO DAILY 05/03/15 [History] Bumetanide [Bumex] 1 mg PO BID 10/31/15 [History] LORazepam [Ativan] 1 mg PO HS 10/31/15 [History] Montelukast [Singulair] 10 mg PO DAILY 10/31/15 [History] Budesonide/Formoterol 80/4.5 [Symbicort 80/4.5] 2 puff IH BIDR 04/25/16 [ History] GuaiFENesin ER [Mucinex] 1,200 mg PO BID 10/24/16 [History] Allergies/Adverse Reactions: 3 Allergy/AdvReac Type Severity Reaction Status Date / Time acetaminophen [From Vicodin] Allergy Hives Verified 04/25/16 09:59 hydrocodone [From Vicodin] Allergy Hives Verified 04/25/16 09:59 Megestrol [From Megace] Allergy See Verified 04/25/16 09:59 Comments Penicillins Allergy Hives Verified 04/25/16 09:59 shellfish derived Allergy Hives Verified 04/25/16 09:59 Sulfa (Sulfonamide Allergy Hives Verified 04/25/16 09:59 Antibiotics) Date of admission: 07/26/17 21:34 Primary care physician: Greg Jay Jr, MD Discharging clinician: Ramakrishna Levy Anticipated date of discharge: 07/27/17 - Constitutional Vitals: Temp Pulse Resp BP Pulse Ox 97.6 F 71 16 160/84 95 07/27/17 07:39 07/27/17 07:39 07/27/17 08:23 07/27/17 07:39 07/27/17 08:23 General appearance: Present: A&O X 3 - Head Head exam: Present: atraumatic, normocephalic - Eye Eye exam: Present: PERRL, conjuntiva pink, sclera anicteric Pupils: Present: PERRL - Neck Neck exam general surgery: Present: supple, trachea midline. Absent: lymphadenopathy - Respiratory Respiratory exam: Present: decreased breath sounds, CTAB. Absent: accessory muscle use, rales, rhonchi, wheezes - Cardiovascular Cardiovascular exam: Present: RRR, +S1, +S2. Absent: diastolic murmur, gallop, rubs, systolic murmur - GI/Abdominal GI/Abdominal exam: Present: normal bowel sounds, soft, no peritoneal signs. Absent: distended, tenderness - Extremities Exam Extremities exam: Present: warm, radial pulses palpable and symmetrical. Absent : calf tenderness, cyanotic, pedal edema - Neurological Exam Neurological exam: Present: CN II-XII intact, oriented X3, no focal deficits. Absent: pronater drift, facial droop, speech deficit - Skin Skin exam: Present: dry, intact - Patient Status Disposition: Home, Self-Care Condition: Fair Overall status at discharge: patient is progressing back to baseline - Ambulatory Orders Ambulatory Orders: EV venous imaging LE LT Time Frame: 1 Week, Facility: [facility], Location: Cardiopulmonary Svc - Discharge Instructions Follow Up With: Greg Jay Jr, MD [Primary Care Provider] -
[2017-07-27] MEDS ORDERED: *HR* LORazepam 1 MG TABLET PO SCH (21:00)
--- NOTE | 2017-07-28 14:46 | Electrocardiograph Report ---
[place] [id number] Test Date: 2017-07-26 Pat Name: Violette Mcnulty Department: 102 Room: 3B32 Gender: F [employer]: : 1945 Requested By: [id number] Order Number: [id number] Reading MD: Fanta Chamberlain Measurements Intervals [place] Rate: 111 P: -54 TX: 200 QRS: -27 QRSD: 106 T: 113 QT: 368 QTc: 433 Interpretive Statements SUPRAVENTRICULAR TACHYCARDIA LEFT VENTRICULAR HYPERTROPHY AND ST-T CHANGE [VOLTAGE CRITERIA PLUS ST/T ABNORMALITY] POSSIBLE ANTEROSEPTAL MYOCARDIAL INFARCTION [30 ms Q WAVE IN V1-V4], OF INDETERMINATE AGE Electronically Signed On 07-28-2017 14:44:10 EDT by Fanta Chamberlain
== END 2017-07-27 11:43 | disposition home or self-care (01) | DRG 313 ==
LOC: EMEROO 17:56 → 3BNU 17:56
PROVIDERS: ADMIT Internal Medicine Nephrology; ATTEND Internal Medicine Nephrology

== ENCOUNTER 2017-07-31 13:01 | Inpatient (IN) ==
--- NOTE | 2017-07-31 14:09 | Emergency Department Note ---
Disposition Clinical Impression: Chest pain Qualifiers: Chest pain type: unspecified Qualified Code(s): R07.9 - Chest pain, unspecified Disposition: Admitted As Inpatient General Adult HPI - General Chief complaint: ED Chest Pain Stated complaint: chest,back, jaw pain Time Seen by Provider: 07/31/17 13:09 Source: patient Mode of arrival: ambulatory Nursing Notes Reviewed: Yes Vital Signs Reviewed: Yes - History of Present Illness HPI Narrative: Patient to ED complaining of chest pain. Patient seen Friday for the same and admitted but left prior to her workup being complete. She is having chest pressure going into her jaws and shoulders. Paresthesias in her arms. Nausea. Saw her network programmer today. She has an appointment with cardiology tomorrow but family is concerned she has been complaining and brought her back for reevaluation. Pain Scale: 4 - Related Data Home Medications Medication Instructions Recorded Confirmed Vitamin B Complex [B Complex] 1 each PO DAILY 01/09/15 07/26/17 Vitamin E 400 unit PO DAILY 01/09/15 07/26/17 Bumetanide [Bumex] 1 mg PO BID 10/31/15 07/26/17 LORazepam [Ativan] 1 mg PO HS 10/31/15 07/26/17 Montelukast [Singulair] 10 mg PO DAILY 10/31/15 07/26/17 GuaiFENesin ER [Mucinex] 1,200 mg PO BID 10/24/16 07/26/17 Budesonide/Formoterol 160/4.5 2 puff IH BIDR 07/31/17 07/31/17 [Symbicort 160/4.5] Calcium Polycarbophil [Fiber 625 mg PO DAILY 07/31/17 07/31/17 Laxative] Citalopram Hydrobromide 40 mg PO DAILY 07/31/17 07/31/17 [Citalopram HBr] Diltiazem CD (24hr) [Cardizem CD] 240 mg PO DAILY 07/31/17 07/31/17 Fluticasone Propionate Nasal 2 spray NS DAILY 07/31/17 07/31/17 [Flonase] [place]-3/Dha/Epa/Fish Oil [Fish Oil 2 cap PO TID 07/31/17 07/31/17 1,000 mg Softgel] Potassium Chloride [K-Tab ER] 20 meq PO DAILY 07/31/17 07/31/17 Ranitidine HCl [Heartburn Relief] 150 mg PO BID 07/31/17 07/31/17 Previous Rx's Medication Instructions Recorded predniSONE [PredniSONE] 10 mg PO DAILY #21 tablet 11/25/14 Allergies Allergy/AdvReac Type Severity Reaction Status Date / Time hydrocodone [From Vicodin] Allergy Hives Verified 07/31/17 13:04 Megestrol [From Megace] Allergy See Verified 07/31/17 13:04 Comments Penicillins Allergy Hives Verified 07/31/17 13:04 shellfish derived Allergy Hives Verified 07/31/17 13:04 Sulfa (Sulfonamide Allergy Hives Verified 07/31/17 13:04 Antibiotics) All systems ED: reviewed and negative except as stated. Constitutional: Denies: fever Cardiovascular: Reports: chest pain Respiratory: Reports: dyspnea. Denies: wheezes Gastrointestinal: Denies: vomiting, diarrhea Past Medical History - Past Medical History Attestation: Yes The following information was validated with the patient. 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 Hemolytically stable. - General General appearance: alert, in no apparent distress - Head Head exam: atraumatic - Eye Eye exam: Present: normal appearance - ENT ENT exam: normal exam - Chest Chest inspection: Present: normal inspection - Respiratory Respiratory exam: Present: normal lung sounds bilaterally. Absent: respiratory distress - Cardiovascular Cardiovascular exam: Present: regular rate, normal rhythm, normal heart sounds - Abdominal Exam Abdominal exam: Present: soft, Non-Tender - Neurological Exam Neurological exam: Present: alert, oriented X3 - Psychiatric Psychiatric exam: Present: normal affect - Skin Skin exam: Present: warm, dry Course Course Narrative: Reviewed her chart from Friday. Patient left prior to stress test. - Reevaluation(s) Reevaluation #1: Discussed with Dr. Herman who will admit the patient. EKG unchanged from prior. Patient not having any pain at this time. Time: 14:55 Reevaluation #2: Patient's chest x-ray read as possible pneumonia. Patient is not coughing. She is afebrile. Normal blood cell count. She also just came from network programmer office. I do not believe that she has pneumonia. Time: 15:36 Vital Signs Temperature 97.4 F L 07/31/17 13:04 Pulse Rate 61 07/31/17 13:04 Respiratory Rate 28 07/31/17 13:04 Blood Pressure 157/86 07/31/17 13:04 O2 Sat by Pulse Oximetry 93 07/31/17 13:04 Temperature 97.5 F L 07/31/17 16:37 Pulse Rate 67 07/31/17 16:37 Respiratory Rate 16 07/31/17 16:37 Blood Pressure 185/91 07/31/17 16:37 O2 Sat by Pulse Oximetry 93 07/31/17 16:37 Oxygen Delivery Oxygen Delivery Room Air Medical Decision Making - Lab Data Lab results reviewed: Yes I reviewed the patient's lab results. Result diagrams: 07/31/17 14:47 07/31/17 14:47 Lab Results 07/31/17 07/31/17 07/31/17 Range/Units 14:30 14:41 14:47 WBC 7.3 (4.3-11.1) K/mcL RBC 3.64 L (3.82-4.97) M/mcL Hgb 12.4 (11.5-15.4) g/dL Hct 36.1 (35.3-44.9) % MCV 99.2 (83.0-100.0) fL MCH 34.1 H (28.0-33.3) pg MCHC 34.3 (31.6-35.5) g/dL RDW 13.2 (11.5-14.5) % Plt Count 304 (140-400) K/mcL MPV 9.0 L (9.4-12.4) fL Immature Gran % 0.4 (0-4) % Seg Neutrophils % 54.5 % Lymphocytes % 32.2 % Monocytes % 11.3 % Eosinophils % 1.2 % Basophils % 0.4 % Neutrophils # 4.0 (1.6-8.9) K/mcL Lymphocytes # 2.3 (0.6-4.6) K/mcL Monocytes # 0.8 (0.0-1.3) K/mcL Eosinophils # 0.1 (0.0-0.6) K/mcL Basophils # 0.0 (0.0-0.2) K/mcL Nucleated RBCs/100 WBC 0.3 H (0) /100 WBC PT 11.7 (9.4-12.1) Seconds INR 1.1 APTT 32.0 (26.0-36.0) Seconds Sodium (136-145) mEq/L Potassium (3.5-5.1) mEq/L Chloride (98-107) mEq/L Carbon Dioxide (23-29) mEq/L BUN (8-23) mg/dL Creatinine (0.60-1.20) mg/dL Est GFR ( Amer) (> 60) Est GFR (Non-Af Amer) (> 60) BUN/Creatinine Ratio (6-26) Glucose (70-105) mg/dL Calculated Osmolality (280-300) Calcium (8.6-10.3) mg/dL Troponin I (< 0.04) ng/mL Urine Color Yellow (Yellow) Urine Clarity Clear (Clear) Urine pH 7.0 (5.0-8.0) pH Units Ur Specific [place] 1.014 (1.010-1.025) Urine Protein Negative (Neg-Trace) mg/dL Urine Glucose (UA) Normal (Normal) mg/dL Urine Ketones Negative (Negative) mg/dL Urine Blood Negative (Negative) Urine Nitrite Negative (Negative) Urine Bilirubin Negative (Negative) Urine Urobilinogen Normal (Normal) mg/dL Ur Leukocyte Esterase Negative (Negative) Ur Culture Indicated? NO (NO) 07/31/17 Range/Units 14:47 WBC (4.3-11.1) K/mcL RBC (3.82-4.97) M/mcL Hgb (11.5-15.4) g/dL Hct (35.3-44.9) % MCV (83.0-100.0) fL MCH (28.0-33.3) pg MCHC (31.6-35.5) g/dL RDW (11.5-14.5) % Plt Count (140-400) K/mcL MPV (9.4-12.4) fL Immature Gran % (0-4) % Seg Neutrophils % % Lymphocytes % % Monocytes % % Eosinophils % % Basophils % % Neutrophils # (1.6-8.9) K/mcL Lymphocytes # (0.6-4.6) K/mcL Monocytes # (0.0-1.3) K/mcL Eosinophils # (0.0-0.6) K/mcL Basophils # (0.0-0.2) K/mcL Nucleated RBCs/100 WBC (0) /100 WBC PT (9.4-12.1) Seconds INR APTT (26.0-36.0) Seconds Sodium 144 (136-145) mEq/L Potassium 3.5 (3.5-5.1) mEq/L Chloride 109 H (98-107) mEq/L Carbon Dioxide 27 (23-29) mEq/L BUN 12 (8-23) mg/dL Creatinine 0.72 (0.60-1.20) mg/dL Est GFR ( Amer) > 60 (> 60) Est GFR (Non-Af Amer) > 60 (> 60) BUN/Creatinine Ratio 17 (6-26) Glucose 85 (70-105) mg/dL Calculated Osmolality 297 (280-300) Calcium 9.5 (8.6-10.3) mg/dL Troponin I < 0.03 (< 0.04) ng/mL Urine Color (Yellow) Urine Clarity (Clear) Urine pH (5.0-8.0) pH Units Ur Specific [place] (1.010-1.025) Urine Protein (Neg-Trace) mg/dL Urine Glucose (UA) (Normal) mg/dL Urine Ketones (Negative) mg/dL Urine Blood (Negative) Urine Nitrite (Negative) Urine Bilirubin (Negative) Urine Urobilinogen (Normal) mg/dL Ur Leukocyte Esterase (Negative) Ur Culture Indicated? (NO) - Radiology Data Radiology results reviewed: Yes I reviewed the patient's radiology results. Chest X-Ray 07/31/17 14:01 IMPRESSION: Mild right basilar airspace disease, atelectasis versus pneumonia. D/ / Rebecca Mcmillan MD / Rebecca Mcmillan MD Interpreting Provider: Rebecca Mcmillan MD - EKG Data EKG #1 EKG attestation: Yes I reviewed and interpreted this EKG. EKG results narrative: Normal sinus at 61. Lateral ST depressions. Normal QRS. Normal axis. Unchanged from EKG July 26.
[2017-07-31 14:50] LABS: Bilirubin,Urine Negative (Negative); Blood,Urine Negative (Negative); Clarity,Urine Clear (Clear); Color,Urine Yellow (Yellow); Glucose,Urine (UA) Normal (Normal); Ketones,Urine Negative (Negative); Leukocyte Esterase,Urine Negative (Negative); Nitrite,Urine Negative (Negative); Protein,Urine Negative (Neg-Trace); Specific Gravity,Urine 1.014 (1.010-1.025); Urobilinogen,Urine Normal (Normal)
[2017-07-31 15:03] LABS: Basophils % 0.4 %; Eosinophils # 0.1 K/mcL (0.0-0.6); Eosinophils % 1.2 %; Hematocrit 36.1 % (35.3-44.9); Hemoglobin 12.4 g/dL (11.5-15.4); Immature Granulocytes % 0.4 % (0-4); Lymphocytes # 2.3 K/mcL (0.6-4.6); Lymphocytes % 32.2 %; Mean Corpuscular HGB Conc 34.3 g/dL (31.6-35.5); Mean Corpuscular Hemoglobin 34.1 pg (28.0-33.3); Mean Corpuscular Volume 99.2 fL (83.0-100.0); Monocytes # 0.8 K/mcL (0.0-1.3); Monocytes % 11.3 %; Nucleated Red Blood Cells 0.3 /100 WBC (0); Platelet Count 304 K/mcL (140-400); Red Blood Count 3.64 M/mcL (3.82-4.97); Red Cell Distribution Width 13.2 % (11.5-14.5); Segmented Neutrophils % 54.5 %
[2017-07-31 15:10] LABS: INR 1.1; Prothrombin Time 11.7 Seconds (9.4-12.1)
[2017-07-31 15:23] LABS: Troponin I < 0.03 ng/mL (< 0.04)
[2017-07-31 15:37] LABS: BUN/Creatinine Ratio 17 (6-26); Blood Urea Nitrogen 12 mg/dL (8-23); Calcium 9.5 mg/dL (8.6-10.3); Carbon Dioxide 27 mEq/L (23-29); Chloride 109 mEq/L (98-107); Glucose 85 mg/dL (70-105); Osmolality,Calculated 297 (280-300); Potassium 3.5 mEq/L (3.5-5.1); Sodium 144 mEq/L (136-145); eGFR For African Americans > 60 (> 60); eGFR For Non-African Americans > 60 (> 60)
[2017-07-31] MEDS ORDERED: Aspirin 325 MG TABLET PO ONE (15:39)
--- NOTE | 2017-07-31 16:51 | Internal Med History&Physical ---
Date of Encounter: 07/31/17 Time of Encounter: 16:51 Internal Medicine - H&P: HPI Chief complaint: CP History of present illness: Ms. Mcnulty is a 72 year old female Patient to ED complaining of chest pain. Patient seen Friday for the same and admitted but left prior to her workup being complete. She is having chest pressure going into her jaws and shoulders. Paresthesias in her arms. Nausea. 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 She has an appointment with cardiology tomorrow but family is concerned she has been complaining and brought her back for reevaluation. The patient was admitted for further evaluation and management to [facility]. Past Med Surg Social Fam HX - Past Medical History Medical history: asthma, cancer, COPD, hyperlipidemia, hypertension, peripheral artery disease, other Psychiatric history: anxiety - Past Surgical History Surgical History: appendectomy, hysterectomy - Social History Smoking Status: Never smoker Smokeless Tobacco Status: No Alcohol use: none Drug use: none - Family History Father Hx Family Cardiac Disorders: Yes Mother Hx Family Neurologic Disorders: Yes (dementia) Sister Hx Family Cardiac Disorders: Yes (SD) Hx Family Respiratory Disorders: Yes (COPD) Internal Medicine - H&P: Meds predniSONE [PredniSONE] 10 mg PO DAILY #21 tablet 11/25/14 [Rx] Vitamin B Complex [B Complex] 1 each PO DAILY 01/09/15 [History] Vitamin E 400 unit PO DAILY 01/09/15 [History] Bumetanide [Bumex] 1 mg PO BID 10/31/15 [History] LORazepam [Ativan] 1 mg PO HS 10/31/15 [History] Montelukast [Singulair] 10 mg PO DAILY 10/31/15 [History] GuaiFENesin ER [Mucinex] 1,200 mg PO BID 10/24/16 [History] Budesonide/Formoterol 160/4.5 [Symbicort 160/4.5] 2 puff IH BIDR 07/31/17 [ History] Calcium Polycarbophil [Fiber Laxative] 625 mg PO DAILY 07/31/17 [History] Citalopram Hydrobromide [Citalopram HBr] 40 mg PO DAILY 07/31/17 [History] Diltiazem CD (24hr) [Cardizem CD] 240 mg PO DAILY 07/31/17 [History] Fluticasone Propionate Nasal [Flonase] 2 spray NS DAILY 07/31/17 [History] [place]-3/Dha/Epa/Fish Oil [Fish Oil 1,000 mg Softgel] 2 cap PO TID 07/31/17 [ History] Potassium Chloride [K-Tab ER] 20 meq PO DAILY 07/31/17 [History] Ranitidine HCl [Heartburn Relief] 150 mg PO BID 07/31/17 [History] Aspirin 81 mg PO DAILY #30 tab.chew 08/04/17 [Rx] Atorvastatin [Lipitor] 20 mg PO HS #30 tablet 08/04/17 [Rx] Atorvastatin [Lipitor] 20 mg PO HS #60 tablet 08/04/17 [Rx] Doxycycline 100 mg PO DAILY #6 capsule 08/04/17 [Rx] Nitroglycerin 0.4 mg SL Q5MIN #30 tab.subl 08/04/17 [Rx] 3 Allergy/AdvReac Type Severity Reaction Status Date / Time hydrocodone [From Vicodin] Allergy Hives Verified 07/31/17 13:04 Megestrol [From Megace] Allergy See Verified 07/31/17 13:04 Comments Penicillins Allergy Hives Verified 07/31/17 13:04 shellfish derived Allergy Hives Verified 07/31/17 13:04 Sulfa (Sulfonamide Allergy Hives Verified 07/31/17 13:04 Antibiotics) All Systems PM: A 10-system review of systems was performed and is negative for pertinent findings except as documented above in the HPI. - Constitutional Constitutional: fatigue, no chills, no fever(s), no night sweats - Cardiovascular Cardiovascular ROS IM: chest pain, no diaphoresis, no dyspnea, no lightheadedness, no palpitations, no syncope - Respiratory Respiratory: no cough, no dyspnea, no wheezing, no excessive phlegm production - Gastrointestinal Gastrointestinal: no abdominal pain, no diarrhea, no hematemesis, no hematochezia, no melena, no nausea, no vomiting - Neurological Neurological ROS: no confusion, no convulsions, no focal weakness, no numbness, no tingling, no tremor(s) - Constitutional Vitals: Temp Pulse Resp BP Pulse Ox 97.5 F L 67 16 185/91 93 07/31/17 16:37 07/31/17 16:37 07/31/17 16:37 07/31/17 16:37 07/31/17 16:37 General appearance: Present: A&O X 3 - Head Head exam: Present: atraumatic, normocephalic - Neck Neck exam general surgery: Present: supple, trachea midline. Absent: lymphadenopathy - Respiratory Respiratory exam: Present: CTAB. Absent: accessory muscle use, rales, rhonchi, wheezes - Cardiovascular Cardiovascular exam: Present: RRR, +S1, +S2. Absent: diastolic murmur, gallop, rubs, systolic murmur - GI/Abdominal GI/Abdominal exam: Present: normal bowel sounds, soft, no peritoneal signs. Absent: distended, tenderness - Extremities Exam Extremities exam: Present: warm, radial pulses palpable and symmetrical. Absent : calf tenderness, cyanotic, pedal edema Internal Med - H&P Results - Labs CBC & Chem 7: 08/04/17 04:19 08/04/17 04:19 - Assessment and plan (1) Chest pain Status: Acute Assessment and plan: - Chest pain due to *CAD *Muskuloskeletal CP - myofascial strain, costochondritis *GERD *Esophageal spasm *Pericarditis - unlikely *Pneumonia - no infiltrate on CXR CAD Risk ([place] all that apply): HTN Obesity PVD LDL FMH DM HDL Smoking Age Sedentary PLAN: - cardiac enzymes x 2 q 8 hr - EKG now and in AM - ASA - O2 by NC to keep SpO2 greater than 92% - UA - Urine toxic screen - CBCD, BMP in AM - Fasting lipids - Tylenol 650 mg PO q 4-6 hr PRN headache - Home meds (check list) - Heparin 5000 U SQ BID - 2D Echo - Cardiology consult Qualifiers: Chest pain type: unspecified Qualified Code(s): R07.9 - Chest pain, unspecified (2) Hypertension Status: Acute Assessment and plan: We will cont home meds Qualifiers: Hypertension type: essential hypertension Qualified Code(s): I10 - Essential (primary) hypertension (3) Anxiety Status: Acute (4) Endometrial cancer Status: Chronic (5) COPD (chronic obstructive pulmonary disease) Status: Acute Assessment and plan: We will cont home meds Qualifiers: COPD type: unspecified COPD Qualified Code(s): J44.9 - Chronic obstructive pulmonary disease, unspecified (6) Hyperlipidemia Status: Acute Assessment and plan: We will cont home meds Qualifiers: Hyperlipidemia type: unspecified Qualified Code(s): E78.5 - Hyperlipidemia , unspecified (7) DVT prophylaxis Status: Acute Assessment and plan: We will place SCDs - Time Spent With Patient Total time spent is greater than 50% in coordination of care (as documented) at patient's floor/unit and/or counseling patient:
[2017-07-31] MEDS ORDERED: Naloxone 0.4 MG/ML INJ IVP PRN (21:02)
[2017-08-01 03:31] LABS: Hemoglobin 11.4 g/dL (11.5-15.4); Immature Granulocytes % 0.5 % (0-4); Red Cell Distribution Width 13.2 % (11.5-14.5)
[2017-08-01 03:38] LABS: Basophils % 0.5 %; Eosinophils # 0.1 K/mcL (0.0-0.6); Eosinophils % 2.4 %; Hematocrit 32.6 % (35.3-44.9); INR 1.1; Lymphocytes # 1.9 K/mcL (0.6-4.6); Lymphocytes % 31.5 %; Mean Corpuscular Hemoglobin 34.4 pg (28.0-33.3); Mean Corpuscular Volume 98.5 fL (83.0-100.0); Mean Platelet Volume 9.2 fL (9.4-12.4); Monocytes # 0.8 K/mcL (0.0-1.3); Monocytes % 12.9 %; Neutrophils # 3.1 K/mcL (1.6-8.9); Platelet Count 300 K/mcL (140-400); Prothrombin Time 11.7 Seconds (9.4-12.1); Red Blood Count 3.31 M/mcL (3.82-4.97); Segmented Neutrophils % 52.2 %
[2017-08-01 03:41] LABS: Activated Partial Thrombo Time 31.5 Seconds (26.0-36.0)
[2017-08-01 03:50] LABS: Alanine Aminotransferase 23 Units/L (7-52); Albumin 3.5 g/dL (3.5-5.7); Albumin/Globulin Ratio 1.5 (1.1-2.2); Alkaline Phosphatase 39 Units/L (34-104); Aspartate Amino Transferase 20 Units/L (13-39); BUN/Creatinine Ratio 14 (6-26); Bilirubin,Total 0.4 mg/dL (0.3-1.0); Blood Urea Nitrogen 10 mg/dL (8-23); Calcium 8.7 mg/dL (8.6-10.3); Carbon Dioxide 23 mEq/L (23-29); Chloride 112 mEq/L (98-107); Chol/HDL Ratio 3.1 (0-4.9); Cholesterol 182 mg/dL (< 200); Globulin 2.3 g/dL (2.4-3.5); Glucose 89 mg/dL (70-105); HDL Cholesterol 59 mg/dL (40-59); LDL Cholesterol,Calculated 101 mg/dL (0-99); Magnesium 1.9 mg/dL (1.6-2.6); Osmolality,Calculated 297 (280-300); Phosphorous 3.8 mg/dL (2.7-4.5); Potassium 3.6 mEq/L (3.5-5.1); Sodium 144 mEq/L (136-145); Total Protein 5.8 g/dL (6.4-8.9); Triglycerides 109 mg/dL (< 150); eGFR For African Americans > 60 (> 60); eGFR For Non-African Americans > 60 (> 60)
[2017-08-01] MEDS: *HR* Heparin 5,000 UNIT/ML VIAL SQ SCH ×2 (05:56→18:21)
[2017-08-01] MEDS: Budesonide/Formoterol 160/4.5 MDI IH SCH ×2 (10:51→20:01)
[2017-08-01] MEDS: Vitamin B Complex/Vit C/Vit E 1 EACH TABLET PO SCH (12:14)
[2017-08-01] MEDS: predniSONE 20 MG TABLET PO SCH (12:15)
[2017-08-01] MEDS: Diltiazem CD (24hr) 240 MG CAPSULE PO SCH (12:15)
[2017-08-01] MEDS: Patient Taking Own Medication 1 EACH PO SCH ×2 (15:13→20:36)
--- NOTE | 2017-08-01 18:24 | Internal Med Progress Note ---
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 Mastectomy -left upper lobectomy -continue outpatient follow-up with oncology and consult as needed (3) COPD (chronic obstructive pulmonary disease) Current Visit: No Status: Acute Assessment and plan: Stable at this time continue with bronchodilators cont with steroid taper bronchodilators Qualifiers: COPD type: unspecified COPD Qualified Code(s): J44.9 - Chronic obstructive pulmonary disease, unspecified (4) Hypertension Current Visit: No Status: Acute Assessment and plan: pt BP elevated patient has not taken BP meds restarted meds -hydralazine as needed Qualifiers: Hypertension type: essential hypertension Qualified Code(s): I10 - Essential (primary) hypertension (5) Anxiety Current Visit: No Status: Acute Assessment and plan: cont home meds (6) Hyperlipidemia Current Visit: No Status: Acute Assessment and plan: cont statin Qualifiers: Hyperlipidemia type: unspecified Qualified Code(s): E78.5 - Hyperlipidemia , unspecified (7) DVT prophylaxis Current Visit: No Status: Acute Assessment and plan: Heparin subcutaneous - Time Spent With Patient Total time spent is greater than 50% in coordination of care (as documented) at patient's floor/unit and/or counseling patient: - Subjective Interval history: Patient seen and examined at bedside presently denies any chest pain or shortness of breath just complains of fatigue. Her blood pressure has been elevated however she has not taken her medications morning. She was given a medication late. I did review treatment plan with patient who verbalized understanding. - Constitutional Vitals: Temp Pulse Resp BP Pulse Ox 98.6 F 78 17 174/110 97 08/01/17 15:03 08/01/17 15:03 08/01/17 15:03 08/01/17 15:03 08/01/17 15:03 General appearance: Present: A&O X 3 - Head Head exam: Present: atraumatic, normocephalic - Eye Eye exam: Present: PERRL, conjuntiva pink, sclera anicteric Pupils: Present: PERRL - Neck Neck exam general surgery: Present: supple, trachea midline. Absent: lymphadenopathy - Respiratory Respiratory exam: Present: CTAB. Absent: accessory muscle use, rales, rhonchi, wheezes - Cardiovascular Cardiovascular exam: Present: RRR, +S1, +S2. Absent: diastolic murmur, gallop, rubs, systolic murmur - GI/Abdominal GI/Abdominal exam: Present: normal bowel sounds, soft, no peritoneal signs. Absent: distended, tenderness Internal Medicine: Result - Labs CBC & Chem 7: 08/01/17 03:19 08/01/17 03:19 Labs: Short CBC 08/01/17 Range/Units 03:19 WBC 5.9 (4.3-11.1) K/mcL Hgb 11.4 L (11.5-15.4) g/dL Hct 32.6 L (35.3-44.9) % Plt Count 300 (140-400) K/mcL Neutrophils # 3.1 (1.6-8.9) K/mcL BMP 08/01/17 03:19 Sodium 144 Potassium 3.6 Chloride 112 H Carbon Dioxide 23 BUN 10 Creatinine 0.70 Glucose 89 Calcium 8.7 Cardiac Enzymes 07/31/17 08/01/17 08/01/17 Range/Units 21:31 03:19 09:08 Troponin I < 0.03 < 0.03 < 0.03 (< 0.04) ng/mL Liver Function 08/01/17 Range/Units 03:19 Total Bilirubin 0.4 (0.3-1.0) mg/dL AST 20 (13-39) Units/L ALT 23 (7-52) Units/L Alkaline Phosphatase 39 (34-104) Units/L Albumin 3.5 (3.5-5.7) g/dL - ABG Interpretation ABG results: PT/INR, D-dimer PT 11.7 Seconds (9.4-12.1) 08/01/17 03:19 Consult Discharge Plan - Plan Referrals: Greg Jay Jr, MD [Primary Care Provider] -
[2017-08-01] MEDS ORDERED: Acetaminophen 325 MG TABLET PO PRN (20:02)
[2017-08-01] MEDS: *HR* LORazepam 1 MG TABLET PO SCH (20:35)
[2017-08-01] MEDS: Famotidine 20 MG TABLET PO SCH (20:35)
[2017-08-01] MEDS: Bumetanide 1 MG TABLET PO SCH (20:35)
[2017-08-02] MEDS: *HR* Heparin 5,000 UNIT/ML VIAL SQ SCH ×2 (05:44→18:22)
[2017-08-02] MEDS ORDERED: Regadenoson 0.4 MG/5 ML SYRINGE IVP ONE (06:15)
[2017-08-02 07:27] LABS: BUN/Creatinine Ratio 15 (6-26); Blood Urea Nitrogen 8 mg/dL (8-23); Carbon Dioxide 23 mEq/L (23-29); Chloride 111 mEq/L (98-107); Glucose 78 mg/dL (70-105); Osmolality,Calculated 293 (280-300); Potassium 3.2 mEq/L (3.5-5.1); Sodium 143 mEq/L (136-145); eGFR For African Americans > 60 (> 60); eGFR For Non-African Americans > 60 (> 60)
[2017-08-02 07:43] LABS: Basophils % 0.3 %; Eosinophils % 0.4 %; Hematocrit 34.8 % (35.3-44.9); Hemoglobin 11.5 g/dL (11.5-15.4); Immature Granulocytes % 0.4 % (0-4); Lymphocytes # 2.3 K/mcL (0.6-4.6); Lymphocytes % 30.8 %; Mean Corpuscular Hemoglobin 32.6 pg (28.0-33.3); Mean Corpuscular Volume 98.6 fL (83.0-100.0); Mean Platelet Volume 9.3 fL (9.4-12.4); Monocytes % 13.4 %; Platelet Count 322 K/mcL (140-400); Red Blood Count 3.53 M/mcL (3.82-4.97); Red Cell Distribution Width 13.2 % (11.5-14.5); Segmented Neutrophils % 54.7 %
--- NOTE | 2017-08-02 08:07 | Electrocardiograph Report ---
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
[2017-08-02] MEDS ORDERED: Diltiazem CD (24hr) 240 MG CAPSULE PO SCH (09:00)
[2017-08-02] MEDS ORDERED: predniSONE 10 MG TABLET PO SCH (09:00)
[2017-08-02] MEDS ORDERED: Vitamin B Complex/Vit C/Vit E 1 EACH TABLET PO SCH (09:00)
[2017-08-02] MEDS: Bumetanide 1 MG TABLET PO SCH ×2 (09:26→21:48)
[2017-08-02] MEDS: predniSONE 20 MG TABLET PO SCH (09:27)
[2017-08-02] MEDS: Famotidine 20 MG TABLET PO SCH ×2 (09:27→21:48)
[2017-08-02] MEDS: Vitamin B Complex/Vit C/Vit E 1 EACH TABLET PO SCH (09:27)
[2017-08-02] MEDS: Diltiazem CD (24hr) 240 MG CAPSULE PO SCH (09:27)
[2017-08-02] MEDS: Patient Taking Own Medication 1 EACH PO SCH ×3 (09:28→21:48)
--- NOTE | 2017-08-02 10:11 | Internal Med Progress Note ---
Date of Encounter: 08/02/17 Time of Encounter: 10:10 - Assessment and plan (1) Chest pain Current Visit: Yes Status: Acute Assessment and plan: - Patient has undergone first half of a 2 day stress test. She will complete secondary tomorrow no chest pain. This time patient states she does feel better Troponins have been negative 3 EKG was some lateral ST depressions which was unchanged from previous Nitroglycerin as needed for chest pain We will make patient nothing by mouth after midnight for cardiac stress in a.m. 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 Mastectomy -left upper lobectomy -continue outpatient follow-up with oncology and consult as needed (3) COPD (chronic obstructive pulmonary disease) Current Visit: No Status: Acute Assessment and plan: Stable at this time continue with bronchodilators cont with steroid taper bronchodilators Qualifiers: COPD type: unspecified COPD Qualified Code(s): J44.9 - Chronic obstructive pulmonary disease, unspecified (4) Hypertension Current Visit: No Status: Acute Assessment and plan: Blood pressure back to baseline Qualifiers: Hypertension type: essential hypertension Qualified Code(s): I10 - Essential (primary) hypertension (5) Anxiety Current Visit: No Status: Acute Assessment and plan: cont home meds (6) Hyperlipidemia Current Visit: No Status: Acute Assessment and plan: cont statin Qualifiers: Hyperlipidemia type: unspecified Qualified Code(s): E78.5 - Hyperlipidemia , unspecified (7) DVT prophylaxis Current Visit: No Status: Acute Assessment and plan: Heparin subcutaneous - Time Spent With Patient Total time spent is greater than 50% in coordination of care (as documented) at patient's floor/unit and/or counseling patient: - Subjective Interval history: Patient seen and examined at bedside presently denies any chest pain or shortness of breath just cpmpleted the first half of 2 day stress test. I reviewed treatment plan with patient who verbalizes understanding - Constitutional Vitals: Temp Pulse Resp BP Pulse Ox 98.3 F 80 17 150/80 93 08/02/17 02:57 08/02/17 05:45 08/02/17 02:57 08/02/17 05:45 08/02/17 02:57 General appearance: Present: A&O X 3 - Head Head exam: Present: atraumatic, normocephalic - Eye Eye exam: Present: PERRL, conjuntiva pink, sclera anicteric Pupils: Present: PERRL - Neck Neck exam general surgery: Present: supple, trachea midline. Absent: lymphadenopathy - Respiratory Respiratory exam: Present: CTAB. Absent: accessory muscle use, rales, rhonchi, wheezes - Cardiovascular Cardiovascular exam: Present: RRR, +S1, +S2. Absent: diastolic murmur, gallop, rubs, systolic murmur - GI/Abdominal GI/Abdominal exam: Present: normal bowel sounds, soft, no peritoneal signs. Absent: distended, tenderness - Extremities Exam Extremities exam: Present: warm, radial pulses palpable and symmetrical. Absent : calf tenderness, cyanotic, pedal edema - Neurological Exam Neurological exam: Present: CN II-XII intact, oriented X3, no focal deficits. Absent: pronater drift, facial droop, speech deficit - Skin Skin exam: Present: dry, intact Internal Medicine: Result - Labs CBC & Chem 7: 08/02/17 06:02 08/02/17 06:02 Labs: Short CBC 08/02/17 Range/Units 06:02 WBC 7.4 (4.3-11.1) K/mcL Hgb 11.5 (11.5-15.4) g/dL Hct 34.8 L (35.3-44.9) % Plt Count 322 (140-400) K/mcL Neutrophils # 4.0 (1.6-8.9) K/mcL BMP 08/02/17 06:02 Sodium 143 Potassium 3.2 L Chloride 111 H Carbon Dioxide 23 BUN 8 Creatinine 0.55 L Glucose 78 Calcium 9.0 Cardiac Enzymes 08/01/17 Range/Units 09:08 Troponin I < 0.03 (< 0.04) ng/mL - ABG Interpretation ABG results: PT/INR, D-dimer PT 11.7 Seconds (9.4-12.1) 08/01/17 03:19 Consult Discharge Plan - Plan Referrals: Greg Jay Jr, MD [Primary Care Provider] -
[2017-08-02] MEDS: Budesonide/Formoterol 160/4.5 MDI IH SCH ×2 (10:27→20:00)
[2017-08-02] MEDS: Fluticasone Propionate Nasal 50 MCG/SPRAY BOTTLE NS SCH (11:52)
[2017-08-02] MEDS: *HR* LORazepam 1 MG TABLET PO SCH (21:48)
[2017-08-03] MEDS: *HR* Heparin 5,000 UNIT/ML VIAL SQ SCH ×2 (05:56→17:51)
[2017-08-03] MEDS: Budesonide/Formoterol 160/4.5 MDI IH SCH ×2 (07:47→20:31)
[2017-08-03 10:01] LABS: Basophils % 0.3 %; Eosinophils # 0.1 K/mcL (0.0-0.6); Eosinophils % 0.9 %; Hematocrit 37.5 % (35.3-44.9); Hemoglobin 12.8 g/dL (11.5-15.4); Immature Granulocytes % 0.5 % (0-4); Lymphocytes # 2.5 K/mcL (0.6-4.6); Lymphocytes % 31.6 %; Mean Corpuscular HGB Conc 34.1 g/dL (31.6-35.5); Mean Corpuscular Volume 99.7 fL (83.0-100.0); Mean Platelet Volume 9.2 fL (9.4-12.4); Monocytes # 0.9 K/mcL (0.0-1.3); Monocytes % 11.4 %; Neutrophils # 4.4 K/mcL (1.6-8.9); Platelet Count 323 K/mcL (140-400); Red Blood Count 3.76 M/mcL (3.82-4.97); Red Cell Distribution Width 13.4 % (11.5-14.5); Segmented Neutrophils % 55.3 %
[2017-08-03 10:21] LABS: BUN/Creatinine Ratio 15 (6-26); Blood Urea Nitrogen 13 mg/dL (8-23); Calcium 9.5 mg/dL (8.6-10.3); Carbon Dioxide 24 mEq/L (23-29); Chloride 109 mEq/L (98-107); Glucose 82 mg/dL (70-105); Osmolality,Calculated 293 (280-300); Potassium 3.5 mEq/L (3.5-5.1); Sodium 142 mEq/L (136-145); eGFR For African Americans > 60 (> 60); eGFR For Non-African Americans > 60 (> 60)
[2017-08-03] MEDS: Vitamin B Complex/Vit C/Vit E 1 EACH TABLET PO SCH (10:33)
[2017-08-03] MEDS: predniSONE 20 MG TABLET PO SCH (10:34)
[2017-08-03] MEDS: Famotidine 20 MG TABLET PO SCH ×2 (10:34→20:04)
[2017-08-03] MEDS: Diltiazem CD (24hr) 240 MG CAPSULE PO SCH (10:35)
[2017-08-03] MEDS: Bumetanide 1 MG TABLET PO SCH ×3 (10:39→20:09)
[2017-08-03] MEDS: Patient Taking Own Medication 1 EACH PO SCH ×3 (10:40→20:05)
[2017-08-03] MEDS: Fluticasone Propionate Nasal 50 MCG/SPRAY BOTTLE NS SCH (10:42)
--- NOTE | 2017-08-03 19:42 | Internal Med Progress Note ---
Date of Encounter: 08/03/17 Time of Encounter: 13:00 - Assessment and plan (1) Chest pain Current Visit: Yes Status: Acute Assessment and plan: - Patient has undergone second half a stress test which did show small sized mild intensity primary fixed perfusion defect involving the distal inferolateral wall with very mild worsening during stress. I did consult cardiology.-Patient denies any chest pain or short of breath at this time patient will be nothing by mouth after midnight Troponins have been negative 3 EKG was some lateral ST depressions which was unchanged from previous Nitroglycerin as needed for chest pain We will make patient nothing by mouth after midnight for cardiac stress in a.m. Cardiac echo CAD risk hypertension and obesity diabetes hyperlipidemia family history Qualifiers: Chest pain type: unspecified Qualified Code(s): R07.9 - Chest pain, unspecified (2) Endometrial cancer Current Visit: No Status: Chronic Assessment and plan: History of ovarian cervical endometrial cancer with lung mass originally diagnosed in 2013 she did undergo Megace as adjuvant therapy but she did not tolerate well restaging scans in March 2016 stable with out any reoccurrence. Mastectomy -left upper lobectomy -continue outpatient follow-up with oncology and consult as needed (3) COPD (chronic obstructive pulmonary disease) Current Visit: No Status: Acute Assessment and plan: Stable at this time no wheezing noted continue with bronchodilators cont with steroid taper bronchodilators Qualifiers: COPD type: unspecified COPD Qualified Code(s): J44.9 - Chronic obstructive pulmonary disease, unspecified (4) Hypertension Current Visit: No Status: Acute Assessment and plan: Appears to be around baseline we will continue with home medications Qualifiers: Hypertension type: essential hypertension Qualified Code(s): I10 - Essential (primary) hypertension (5) Anxiety Current Visit: No Status: Acute Assessment and plan: cont home meds (6) Hyperlipidemia Current Visit: No Status: Acute Assessment and plan: cont statin Qualifiers: Hyperlipidemia type: unspecified Qualified Code(s): E78.5 - Hyperlipidemia , unspecified (7) DVT prophylaxis Current Visit: No Status: Acute Assessment and plan: Heparin subcutaneous (8) Abnormal stress test Current Visit: Yes Status: Acute Assessment and plan: Patient had abnormal stress test today Small sized, mild intensity primarily fixed perfusion defect involving the distal inferolateral wall with very mild worsening during stress. * Other segments demonstrate normal rest and stress perfusion. Cardiology has been consulted Nothing by mouth after midnight - Time Spent With Patient Total time spent is greater than 50% in coordination of care (as documented) at patient's floor/unit and/or counseling patient: - Subjective Interval history: Patient seen and examined at bedside. Patient underwent second half of stress test today. Was notified that patient had abnormal stress. I did discuss this with the patient cardiology has been consulted. Patient will be nothing by mouth after midnight. Patient verbalized understanding and agreement to treatment plan. - Constitutional Vitals: Temp Pulse Resp BP Pulse Ox 98.0 F 74 16 145/83 97 08/03/17 18:47 08/03/17 18:47 08/03/17 18:47 08/03/17 18:47 08/03/17 18:47 General appearance: Present: A&O X 3 - Head Head exam: Present: atraumatic, normocephalic - Eye Eye exam: Present: PERRL, conjuntiva pink, sclera anicteric Pupils: Present: PERRL - Neck Neck exam general surgery: Present: supple, trachea midline. Absent: lymphadenopathy - Respiratory Respiratory exam: Present: CTAB. Absent: accessory muscle use, rales, rhonchi, wheezes - Cardiovascular Cardiovascular exam: Present: RRR, +S1, +S2. Absent: diastolic murmur, gallop, rubs, systolic murmur - GI/Abdominal GI/Abdominal exam: Present: normal bowel sounds, soft, no peritoneal signs. Absent: distended, tenderness - Extremities Exam Extremities exam: Present: warm, radial pulses palpable and symmetrical. Absent : calf tenderness, cyanotic, pedal edema - Neurological Exam Neurological exam: Present: CN II-XII intact, oriented X3, no focal deficits. Absent: pronater drift, facial droop, speech deficit - Skin Skin exam: Present: dry, intact Internal Medicine: Result - Labs CBC & Chem 7: 08/03/17 09:29 08/03/17 09:29 Labs: Short CBC 08/03/17 Range/Units 09:29 WBC 8.0 (4.3-11.1) K/mcL Hgb 12.8 (11.5-15.4) g/dL Hct 37.5 (35.3-44.9) % Plt Count 323 (140-400) K/mcL Neutrophils # 4.4 (1.6-8.9) K/mcL BMP 08/03/17 09:29 Sodium 142 Potassium 3.5 Chloride 109 H Carbon Dioxide 24 BUN 13 Creatinine 0.84 Glucose 82 Calcium 9.5 - ABG Interpretation ABG results: PT/INR, D-dimer PT 11.7 Seconds (9.4-12.1) 08/01/17 03:19 Consult Discharge Plan - Plan Referrals: Greg Jay Jr, MD [Primary Care Provider] -
[2017-08-03] MEDS: *HR* LORazepam 1 MG TABLET PO SCH (20:05)
[2017-08-04] MEDS: *HR* Heparin 5,000 UNIT/ML VIAL SQ SCH (06:09)
[2017-08-04 06:33] LABS: Basophils % 0.4 %; Hematocrit 32.4 % (35.3-44.9); Immature Granulocytes % 0.5 % (0-4); Lymphocytes # 2.3 K/mcL (0.6-4.6); Lymphocytes % 27.7 %; Mean Corpuscular Hemoglobin 33.8 pg (28.0-33.3); Mean Corpuscular Volume 99.7 fL (83.0-100.0); Mean Platelet Volume 9.5 fL (9.4-12.4); Monocytes # 0.9 K/mcL (0.0-1.3); Monocytes % 10.3 %; Neutrophils # 5.2 K/mcL (1.6-8.9); Platelet Count 290 K/mcL (140-400); Red Blood Count 3.25 M/mcL (3.82-4.97); Red Cell Distribution Width 13.2 % (11.5-14.5); Segmented Neutrophils % 61.1 %
[2017-08-04 06:44] LABS: BUN/Creatinine Ratio 23 (6-26); Blood Urea Nitrogen 17 mg/dL (8-23); Calcium 8.9 mg/dL (8.6-10.3); Carbon Dioxide 23 mEq/L (23-29); Chloride 111 mEq/L (98-107); Glucose 96 mg/dL (70-105); Osmolality,Calculated 293 (280-300); Potassium 3.5 mEq/L (3.5-5.1); Sodium 141 mEq/L (136-145); eGFR For African Americans > 60 (> 60); eGFR For Non-African Americans > 60 (> 60)
[2017-08-04] MEDS: Budesonide/Formoterol 160/4.5 MDI IH SCH (08:01)
[2017-08-04] MEDS ORDERED: predniSONE 20 MG TABLET PO SCH (09:00)
--- NOTE | 2017-08-04 09:15 | Cardiology Consult Note ---
<Sunil Isidro - Last Filed: 08/04/17 10:39> Date of Encounter: 08/04/17 Time of Encounter: 09:15 Assessment and Plan (1) Chest pain Status: Acute Per Cardiology: Atypical chest pain symptoms occurring at rest. Patient has experiencing increased shortness of breath with exertion from baseline and overall increasing fatigue. Trops negative 4. Stress test results reviewed with patient and family. I had lengthy discussion regarding potential further ischemic evaluation, however with stress test not showing clear abnormal findings in patient with present atypical presentation with negative troponins recommendations for conservative medical management for now especially since patient has severe shellfish allergy with reported hives and laryngeal edema. Current echo pending, assuming no significant findings cardiology will sign off and follow up in outpatient setting or surveillance. Discussed and reviewed with Dr. Allred who agrees with plan. Patient and family verbalized understanding and agreed with plan. All questions answered. Qualifiers: Chest pain type: unspecified Qualified Code(s): R07.9 - Chest pain, unspecified (2) Abnormal nuclear stress test Status: Acute Per Cardiology: Had 2 day exercise nuclear stress test showed "small sized, mild intensity primarily fixed perfusion defect involving the distal inferior lateral wall with very mild worsening during stress possibly representing ischemia". Has noted shellfish allergy with hives. Will add asa. Discussion w patient/family: The assessment and plan as outlined above was discussed with the patient and/or family members who expressed understanding and agreement. All questions were answered. Thank you for involving us in the care of your patient. Please call with any questions. History of Present Illness Consult date: 08/04/17 Requesting physician: Omayra Solano Consult reason: Abnormal stress test Chief complaint: Fatigue, SOB, CP History of present illness: Ms. Mcnulty is a 72 year old female with a relevant past medical history of reported endometrial/uterine/cervical cancer with history of chemotherapy and radiation treatments with subsequent lung metastasis with reported left lobe surgical procedure. She denies any past history of smoking, however exposure to secondhand smoke. Per review of medical records follows with pulmonology for asthma/COPD. She denies any diabetes mellitus history. Reports family history father dying from MT at age 73 and sister receiving for total stents in her late 60s. She has never had ischemic evaluation. Cardiology consult today for concern for possible abnormal stress test and evaluation of worsening shortness of breath at rest, increasing fatigue, and chest cramping symptoms. Patient seen with family at bedside. She reports chronic short of breath with exertion that has increased over the past few weeks. She reports she does utilize CPAP at home during the nighttime. She reports increasing fatigue over the past one month. Family member does report she does work still 40 hours per week. She does report left-sided cramping/fluttering sensations that started over the past week and lasts for a few seconds and subsided. She reports with the symptoms some left arm discomfort as well. She denies any active bleeding or blood loss. Reports his history of chronic lymphedema. She overall reports bilateral lower extremity swelling slightly worsened lately, however better than when it has been in the past. Past Med Surg Social Fam HX - Past Medical History Attestation: Yes The following information was validated with the patient. Source: patient, old records reviewed, obtained from family Medical history: asthma, cancer, COPD, hyperlipidemia, hypertension, peripheral artery disease, other Psychiatric history: anxiety - Past Surgical History Surgical History: appendectomy, hysterectomy - Social History Smoking Status: Never smoker Smokeless Tobacco Status: No Alcohol use: none Drug use: none - Family History Father Living Status: Age at : 65 Cause of : MT Hx Family Cardiac Disorders: Yes Mother Living Status: Age at : 82 Cause of : Dementia Hx Family Neurologic Disorders: Yes (dementia) Sister Hx Family Cardiac Disorders: Yes (MT) Hx Family Respiratory Disorders: Yes (COPD) Medications and Allergies predniSONE [PredniSONE] 10 mg PO DAILY #21 tablet 11/25/14 [Rx] Vitamin B Complex [B Complex] 1 each PO DAILY 01/09/15 [History] Vitamin E 400 unit PO DAILY 01/09/15 [History] Bumetanide [Bumex] 1 mg PO BID 10/31/15 [History] LORazepam [Ativan] 1 mg PO HS 10/31/15 [History] Montelukast [Singulair] 10 mg PO DAILY 10/31/15 [History] GuaiFENesin ER [Mucinex] 1,200 mg PO BID 10/24/16 [History] Budesonide/Formoterol 160/4.5 [Symbicort 160/4.5] 2 puff IH BIDR 07/31/17 [ History] Calcium Polycarbophil [Fiber Laxative] 625 mg PO DAILY 07/31/17 [History] Citalopram Hydrobromide [Citalopram HBr] 40 mg PO DAILY 07/31/17 [History] Diltiazem CD (24hr) [Cardizem CD] 240 mg PO DAILY 07/31/17 [History] Fluticasone Propionate Nasal [Flonase] 2 spray NS DAILY 07/31/17 [History] [place]-3/Dha/Epa/Fish Oil [Fish Oil 1,000 mg Softgel] 2 cap PO TID 07/31/17 [ History] Potassium Chloride [K-Tab ER] 20 meq PO DAILY 07/31/17 [History] Ranitidine HCl [Heartburn Relief] 150 mg PO BID 07/31/17 [History] Aspirin 81 mg PO DAILY #30 tab.chew 08/04/17 [Rx] Atorvastatin [Lipitor] 20 mg PO HS #30 tablet 08/04/17 [Rx] Atorvastatin [Lipitor] 20 mg PO HS #60 tablet 08/04/17 [Rx] Doxycycline 100 mg PO DAILY #6 capsule 08/04/17 [Rx] Nitroglycerin 0.4 mg SL Q5MIN #30 tab.subl 08/04/17 [Rx] 3 Allergy/AdvReac Type Severity Reaction Status Date / Time hydrocodone [From Vicodin] Allergy Hives Verified 07/31/17 13:04 Megestrol [From Megace] Allergy See Verified 07/31/17 13:04 Comments Penicillins Allergy Hives Verified 07/31/17 13:04 shellfish derived Allergy Hives Verified 07/31/17 13:04 Sulfa (Sulfonamide Allergy Hives Verified 07/31/17 13:04 Antibiotics) All Systems Review: The remainder of the systems were reviewed and are negative - Constitutional Constitutional: fatigue - Cardiovascular Cardiovascular: as per HPI, chest pain at rest, dyspnea at rest, leg edema Physical Examination Vital Signs, Last 4 Hours Temp Pulse Resp BP Pulse Ox 08/04/17 08:01 20 98 08/04/17 07:32 97.9 F 74 16 153/79 94 General: Conversant, No Apparent Distress HEENT: Atraumatic, Normocephaly, Mucus Membranes Moist Cardiac: Reg Rate and Rhythm, Normal S1 and S2, No Murmur Lungs: Normal Breath Sounds, No Wheeze, Rales, Rhonchi Neuro: Alert and responsive, No focal deficits noted Abdomen: Soft, Non-Tender, Other (obese) Skin: No rashes noted on visualized skin Musculoskeletal: No Chest Wall Tenderness Extremities: No Clubbing, No Cyanosis, Normal Pulses, Other (+1 nonpitting bilateral lower extremity edema left slightly greater than right) Results 08/04/17 04:19 08/04/17 04:19 Lab Results Laboratory Tests 07/31/17 07/31/17 08/01/17 14:47 21:31 03:19 Hgb Hct INR Creatinine Est GFR (Non-Af Amer) Troponin I < 0.03 < 0.03 < 0.03 B-Natriuretic Peptide LDL Cholesterol, Calc 08/01/17 08/01/17 08/01/17 03:19 03:19 03:19 Hgb Hct INR 1.1 Creatinine Est GFR (Non-Af Amer) Troponin I B-Natriuretic Peptide 144 H LDL Cholesterol, Calc 101 H 08/01/17 08/04/17 08/04/17 09:08 04:19 04:19 Hgb 11.0 L D Hct 32.4 L INR Creatinine 0.73 Est GFR (Non-Af Amer) > 60 Troponin I < 0.03 B-Natriuretic Peptide LDL Cholesterol, Calc ITS Impressions Chest X-Ray 07/31/17 14:01 IMPRESSION: Mild right basilar airspace disease, atelectasis versus pneumonia. D/ / Rebecca Mcmillan MD / Rebecca Mcmillan MD Interpreting Provider: Rebecca Mcmillan MD Active Medications Acetaminophen (Tylenol) 650 mg PO Q6HR PRN PRN Reason: Fever Stop: 01/31/18 20:03 Last Admin: 08/01/17 20:35 Dose: 650 mg Budesonide/Formoterol Fumarate (Symbicort) 2 puff IH BIDR DESI PRN Reason: Protocol Stop: 01/31/18 10:01 Last Admin: 08/04/17 08:01 Dose: 2 puff Bumetanide (Bumex) 1 mg PO BID DESI Stop: 01/31/18 21:01 Last Admin: 08/03/17 20:09 Dose: 1 mg Calcium Polycarbophil (Fibercon) 625 mg PO DAILY DESI Stop: 01/31/18 11:26 Last Admin: 08/03/17 10:34 Dose: 625 mg Citalopram Hydrobromide (Celexa) 40 mg PO DAILY DESI Stop: 01/31/18 11:31 Last Admin: 08/03/17 10:33 Dose: 40 mg Diltiazem HCl (Cardizem Cd) 240 mg PO DAILY DESI Stop: 01/31/18 11:31 Last Admin: 08/03/17 10:35 Dose: 240 mg Famotidine (Pepcid) 20 mg PO BID DESI Stop: 01/31/18 21:01 Last Admin: 08/03/17 20:04 Dose: 20 mg Fluticasone Propionate (Flonase) 100 mcg NS DAILY [facility] PRN Reason: Protocol Stop: 02/01/18 09:01 Last Admin: 08/03/17 10:42 Dose: 100 mcg Guaifenesin (Mucinex) 1,200 mg PO BID DESI Stop: 01/31/18 21:01 Last Admin: 08/03/17 20:04 Dose: 1,200 mg Heparin Sodium (Porcine) (Heparin) 5,000 unit SQ Q12HR DESI Stop: 01/31/18 06:01 Last Admin: 08/04/17 06:09 Dose: 5,000 unit Lorazepam (Ativan) 1 mg PO HS DESI Stop: 01/31/18 21:01 Last Admin: 08/03/17 20:05 Dose: 1 mg Montelukast Sodium (Singulair) 10 mg PO DAILY [facility]I Stop: 01/31/18 11:27 Last Admin: 08/03/17 10:34 Dose: 10 mg Naloxone HCl (Narcan) 0.4 mg IVP Q2MIN PRN PRN Reason: SEE COMMENTS Stop: 01/30/18 21:03 Pharmacy Profile Note (Patient Taking Own Medication) 2 each PO TID [facility] Stop: 01/31/18 15:01 Last Admin: 08/03/17 20:05 Dose: Not Given Potassium Chloride (Potassium Chloride) 20 meq PO DAILY [facility]I Stop: 01/31/18 11:28 Last Admin: 08/03/17 10:34 Dose: 20 meq Prednisone (Prednisone) 10 mg PO DAILY [facility] Stop: 08/09/17 09:01 Prednisone (Prednisone) 20 mg PO DAILY [facility] Stop: 08/06/17 09:01 Vitamin B Complex/Vit C/Vit E (Stresstab) 1 each PO DAILY [facility] Stop: 01/31/18 11:31 Last Admin: 08/03/17 10:33 Dose: 1 each Vitamin E (Vitamin E) 400 unit PO DAILY [facility] Stop: 01/31/18 11:31 Last Admin: 08/03/17 10:33 Dose: 400 unit - Imaging and Cardiology Stress Test: report reviewed Echo: pending, report reviewed (05/2014: Impressions: LVEF 55%. Normal left ventricular size and systolic function. There is evidence of mild diastolic dysfunction of the left ventricle. Normal right ventricular size and function. Trace aortic regurgitation. Estimated RVSP was 22 mmHg. No pulmonary hypertension. Clinical correlation is suggested. Left Ventricular Wall Motion : Rest Echo Findings All wall segments showed normal motion.) - EKG Interpretation EKG results cardiology: personally reviewed, no diagnostic ischemia Consult Discharge Plan - Plan Instructions: Doxycycline (By mouth), Aspirin (By mouth), Nitroglycerin, Rapid Release (By mouth), Atorvastatin (By mouth), Chest Pain (DC) Additional Instructions: Aspirin 81 mg daily Doxycycline 100mg Take BID on first day then daily for five days Referrals: Greg Jay Jr, MD [Primary Care Provider] - (Web request was sent for appointment ) iGta Allred [Partnered Physician] - (Cardio office will call for appointment - if you do not hear from in the next couple days please call ) Prescriptions: Nitroglycerin 0.4 mg SL Q5MIN #30 tab.subl Aspirin 81 mg PO DAILY #30 tab.chew Atorvastatin [Lipitor] 20 mg PO HS #30 tablet Atorvastatin [Lipitor] 20 mg PO HS #60 tablet Doxycycline 100 mg PO DAILY #6 capsule <Gita Allred - Last Filed: 08/05/17 11:22> Date of Encounter: 08/05/17 - Attending Attestation I have personally performed a face to face evaluation on this patient. I have reviewed and agree with the care plan. History and Exam by me shows: 72 YOF with atypical chest pain lasting few seconds at a time non exertional found to have an unremarkable stress test with preserved EF Patient had partial lung resection for Lung CA F/U as an OP if pain returns or worsens patient to contact our office immediaetly Assessment and Plan Discussion w patient/family: The assessment and plan as outlined above was discussed with the patient and/or family members who expressed understanding and agreement. All questions were answered. Thank you for involving us in the care of your patient. Please call with any questions. History of Present Illness History of present illness: Ms. Mcnulty is a 72 year old female All Systems Review: The remainder of the systems were reviewed and are negative Results 08/04/17 04:19 08/04/17 04:19
[2017-08-04] MEDS: Famotidine 20 MG TABLET PO SCH (09:20)
[2017-08-04] MEDS: Diltiazem CD (24hr) 240 MG CAPSULE PO SCH (09:20)
[2017-08-04] MEDS: Vitamin B Complex/Vit C/Vit E 1 EACH TABLET PO SCH (09:20)
[2017-08-04] MEDS: Patient Taking Own Medication 1 EACH PO SCH ×2 (09:21→13:57)
[2017-08-04] MEDS: Bumetanide 1 MG TABLET PO SCH (09:21)
[2017-08-04] MEDS: Fluticasone Propionate Nasal 50 MCG/SPRAY BOTTLE NS SCH (09:27)
[2017-08-04] MEDS ORDERED: Aspirin 81 MG TAB.CHEW PO SCH (11:00)
[2017-08-04 15:48] VITALS: BP 166/94
--- NOTE | 2017-08-04 15:48 | Discharge Summary ---
- NOTES TO OUTPATIENT PROVIDER Notes to Outpatient Provider: -Patient had abnormal stress test Small sized, mild intensity primarily fixed perfusion defect involving the. distal inferolateral wall with very mild worsening during stress. * Other segments demonstrate normal rest and stress perfusion. seen by cardiology- medical managment Orders not resulted at time of discharge: Pending orders 08/01/17 18:50 NM dileep perf SPECT multi [NM] Routine 08/05/17 04:00 CBC [Complete Blood Count] [HEME] AM 0400 Chem 7 [Basic Metabolic Panel] AM 0400 Date of Encounter: 08/04/17 Time of Encounter: 15:46 - Discharge Diagnosis (1) Chest pain Priority: Primary Status: Acute Qualifiers: Chest pain type: unspecified Qualified Code(s): R07.9 - Chest pain, unspecified (2) Endometrial cancer Priority: Secondary Status: Chronic (3) COPD (chronic obstructive pulmonary disease) Priority: Secondary Status: Acute Qualifiers: COPD type: unspecified COPD Qualified Code(s): J44.9 - Chronic obstructive pulmonary disease, unspecified (4) Hypertension Priority: Secondary Status: Acute Qualifiers: Hypertension type: essential hypertension Qualified Code(s): I10 - Essential (primary) hypertension (5) Anxiety Priority: Secondary Status: Acute (6) Hyperlipidemia Priority: Secondary Status: Acute Qualifiers: Hyperlipidemia type: unspecified Qualified Code(s): E78.5 - Hyperlipidemia , unspecified (7) Abnormal stress test Priority: Secondary Status: Acute Hospital course: Ms. Mcnulty is a 72 year old female past medical hx of asthma COPD HLD She was seen prior for CP however left before workup complete. She was then seen by washer machine and placed on steroids . She had been expereincing pain in her jaw radiaiting into her shoulders, paresthesia into arms. Troponins were negative x3 EKG with no acute ST T wave abnormality. She underwent a nuclear stress tets which did reveal Small sized, mild intensity primarily fixed perfusion defect involving the distal inferolateral wall with very mild worsening during stress. Cardiology was consulted since stress test not showing clear abnormal findings in patient with present atypical presentation with negative troponins recommendations for conservative medical management for now especially since patient has severe shellfish allergy with reported hives and laryngeal edema. Patient agreed Cardiology ok with discharge if echo results are normal, which did show EF 60% VEF 60%. Mild left ventricular diastolic dysfunction. Normal right ventricular structure and function. Aortic sclerosis.Mild mitral regurgitation.No pulmonary hypertension. Patient CXR did show atelectasis versus pneumonia. Will place on doxycycline, continue with steroids. Gave prescription for atorvastatin, nitroglycerin, ASA. Advised to continue home medications Advised patient to follow up with PCP cardiology and pulmonolgy. Patient verbalizes understanding She is hemodynamically stable and ready for discharge Discharge discussed with: patient - Time Spent with Patient Total time spent providing and/or coordinating discharge services: - Discharge Medications Prescriptions: Nitroglycerin 0.4 mg SL Q5MIN #30 tab.subl Aspirin 81 mg PO DAILY #30 tab.chew Atorvastatin [Lipitor] 20 mg PO HS #30 tablet Atorvastatin [Lipitor] 20 mg PO HS #60 tablet Doxycycline 100 mg PO DAILY #6 capsule Home Medications: predniSONE [PredniSONE] 10 mg PO DAILY #21 tablet 11/25/14 [Rx] Vitamin B Complex [B Complex] 1 each PO DAILY 01/09/15 [History] Vitamin E 400 unit PO DAILY 01/09/15 [History] Bumetanide [Bumex] 1 mg PO BID 10/31/15 [History] LORazepam [Ativan] 1 mg PO HS 10/31/15 [History] Montelukast [Singulair] 10 mg PO DAILY 10/31/15 [History] GuaiFENesin ER [Mucinex] 1,200 mg PO BID 10/24/16 [History] Budesonide/Formoterol 160/4.5 [Symbicort 160/4.5] 2 puff IH BIDR 07/31/17 [ History] Calcium Polycarbophil [Fiber Laxative] 625 mg PO DAILY 07/31/17 [History] Citalopram Hydrobromide [Citalopram HBr] 40 mg PO DAILY 07/31/17 [History] Diltiazem CD (24hr) [Cardizem CD] 240 mg PO DAILY 07/31/17 [History] Fluticasone Propionate Nasal [Flonase] 2 spray NS DAILY 07/31/17 [History] Santa-3/Dha/Epa/Fish Oil [Fish Oil 1,000 mg Softgel] 2 cap PO TID 07/31/17 [ History] Potassium Chloride [K-Tab ER] 20 meq PO DAILY 07/31/17 [History] Ranitidine HCl [Heartburn Relief] 150 mg PO BID 07/31/17 [History] Aspirin 81 mg PO DAILY #30 tab.chew 08/04/17 [Rx] Atorvastatin [Lipitor] 20 mg PO HS #30 tablet 08/04/17 [Rx] Atorvastatin [Lipitor] 20 mg PO HS #60 tablet 08/04/17 [Rx] Doxycycline 100 mg PO DAILY #6 capsule 08/04/17 [Rx] Nitroglycerin 0.4 mg SL Q5MIN #30 tab.subl 08/04/17 [Rx] Allergies/Adverse Reactions: 3 Allergy/AdvReac Type Severity Reaction Status Date / Time hydrocodone [From Vicodin] Allergy Hives Verified 07/31/17 13:04 Megestrol [From Megace] Allergy See Verified 07/31/17 13:04 Comments Penicillins Allergy Hives Verified 07/31/17 13:04 shellfish derived Allergy Hives Verified 07/31/17 13:04 Sulfa (Sulfonamide Allergy Hives Verified 07/31/17 13:04 Antibiotics) Date of admission: 07/31/17 21:02 Primary care physician: Greg Jay Jr, MD Consults: 08/03/17 13:59 Consult to Cardiology [CONS] Routine Comment: Consulting Provider: Cardiology Anna Reason for Consult: abnormal stress Time Notified: 13:59 Call Completed: Yes Discharging clinician: Omayra Solano Anticipated date of discharge: 08/04/17 - Constitutional Vitals: Temp Pulse Resp BP Pulse Ox 98 F 72 17 187/93 92 08/04/17 10:54 08/04/17 10:54 08/04/17 10:54 08/04/17 10:54 08/04/17 10:54 General appearance: Present: A&O X 3 - Head Head exam: Present: atraumatic, normocephalic - Eye Eye exam: Present: PERRL, conjuntiva pink, sclera anicteric Pupils: Present: PERRL - Neck Neck exam general surgery: Present: supple, trachea midline. Absent: lymphadenopathy - Respiratory Respiratory exam: Present: CTAB. Absent: accessory muscle use, rales, rhonchi, wheezes - Cardiovascular Cardiovascular exam: Present: RRR, +S1, +S2. Absent: diastolic murmur, gallop, rubs, systolic murmur - GI/Abdominal GI/Abdominal exam: Present: normal bowel sounds, soft, no peritoneal signs. Absent: distended, tenderness - Extremities Exam Extremities exam: Present: warm, radial pulses palpable and symmetrical. Absent : calf tenderness, cyanotic, pedal edema - Neurological Exam Neurological exam: Present: CN II-XII intact, oriented X3, no focal deficits. Absent: pronater drift, facial droop, speech deficit - Skin Skin exam: Present: dry, intact - Patient Status Disposition: Home, Self-Care Condition: Good Functional capacity at discharge: independent ambulation Overall status at discharge: patient is back to baseline - Discharge Instructions Instructions: Doxycycline (By mouth), Aspirin (By mouth), Nitroglycerin, Rapid Release (By mouth), Atorvastatin (By mouth), Chest Pain (DC) Follow Up With: Greg Jay Jr, MD [Primary Care Provider] - (Web request was sent for appointment ) Gita Allred [Partnered Physician] - (Cardio office will call for appointment - if you do not hear from in the next couple days please call ) Additional Instructions: Aspirin 81 mg daily Doxycycline 100mg Take BID on first day then daily for five days - Diet and Activity Activity: increase activity as tolerated Diet: low fat, low cholesterol, low salt diet
[2017-08-07] MEDS ORDERED: predniSONE 10 MG TABLET PO SCH (09:00)
== END 2017-08-04 17:05 | disposition home or self-care (01) | DRG 313 ==
LOC: 3BNU 13:01 → EMEROO 13:01 → 3BNU 16:04
PROVIDERS: ADMIT Hospitalist; ATTEND Hospitalist

== ENCOUNTER 2020-04-22 13:19 | Inpatient (IN) ==
[2020-04-22 13:49] LABS: Basophils % 0.1 %; Eosinophils % 0.1 %; Hematocrit 36.9 % (35.3-44.9); Hemoglobin 12.4 g/dL (11.5-15.4); Immature Granulocytes % 0.7 % (0-4); Lymphocytes # 2.2 K/mcL (0.6-4.6); Lymphocytes % 16.2 %; Mean Corpuscular HGB Conc 33.6 g/dL (31.6-35.5); Mean Corpuscular Hemoglobin 32.3 pg (28.0-33.3); Mean Corpuscular Volume 96.1 fL (83.0-100.0); Mean Platelet Volume 8.9 fL (9.4-12.4); Monocytes # 1.4 K/mcL (0.0-1.3); Monocytes % 10.5 %; Platelet Count 338 K/mcL (140-400); Red Blood Count 3.84 M/mcL (3.82-4.97); Red Cell Distribution Width 13.4 % (11.5-14.5); Segmented Neutrophils % 72.4 %; White Blood Count 13.8 K/mcL (4.3-11.1)
[2020-04-22 13:55] LABS: INR 1.1
[2020-04-22 13:58] LABS: Activated Partial Thrombo Time 25.7 Seconds (26.0-36.0)
[2020-04-22 14:10] LABS: BUN/Creatinine Ratio 18 (6-26); Blood Urea Nitrogen 15 mg/dL (8-23); Calcium 9.7 mg/dL (8.6-10.3); Carbon Dioxide 27 mEq/L (23-29); Chloride 101 mEq/L (98-107); Glucose 87 mg/dL (70-105); Osmolality,Calculated 294 (280-300); Potassium 2.8 mEq/L (3.5-5.1); Sodium 142 mEq/L (136-145); eGFR For African Americans > 60 (> 60); eGFR For Non-African Americans > 60 (> 60)
[2020-04-22 14:11] LABS: Troponin I < 0.03 ng/mL (< 0.04)
[2020-04-22] MEDS ORDERED: Isovue-370 500 ML BOTTLE IVP ONE (14:14)
[2020-04-22] MEDS ORDERED: Azithromycin 500 MG in 0.9 % Sodium Chloride 250 ML IVPB ONE (14:44)
[2020-04-22] MEDS ORDERED: cefTRIAXone 1,000 MG in 0.9 % Sodium Chloride Mini Bag 100 ML IVPB ONE (14:44)
[2020-04-22 14:48] LABS: ABG Base Excess 7 mEq/L (-2 to 3); ABG HCO3 30 mEq/L (21-27); ABG Oxygen Saturation 92 % (95-98); ABG PCO2 38 mmHg (35-45); ABG PH 7.51 pH Units (7.32-7.45); ABG PO2 58 mmHg (85-104); ABG TCO2 32 mEq/L (20-26)
[2020-04-22] MEDS ORDERED: Acetaminophen 325 MG TABLET PO PRN (14:59)
[2020-04-22] MEDS ORDERED: Naloxone 0.4 MG/ML INJ IVP PRN (14:59)
[2020-04-22 15:06] LABS: Adenovirus Not Detected (Not Detect); Bordetella Pertussis Not Detected (Not Detect); Chlamydophila pneumoniae Not Detected (Not Detect); Coronavirus 229E Not Detected (Not Detect); Coronavirus HKU1 Not Detected (Not Detect); Coronavirus NL63 Not Detected (Not Detect); Coronavirus OC43 Not Detected (Not Detect); Human Metapneumovirus Not Detected (Not Detect); Human Rhinovirus/Enterovirus Not Detected (Not Detect); Influenza A Subtype 2009 H1 Not Detected (Not Detect); Influenza B Not Detected (Not Detect); Mycoplasma pneumoniae Not Detected (Not Detect); Parainfluenza Virus 1 Not Detected (Not Detect); Parainfluenza Virus 2 Not Detected (Not Detect); Parainfluenza Virus 3 Not Detected (Not Detect); Parainfluenza Virus 4 Not Detected (Not Detect); Respiratory Syncytial Virus Not Detected (Not Detect); SARS-CoV-2 Not Detected (Not Detect)
[2020-04-22 15:40] LABS: Lactate Dehydrogenase 214 Units/L (140-271); Magnesium 1.6 mg/dL (1.6-2.6); Total Protein 6.5 g/dL (6.4-8.9)
[2020-04-22] MEDS ORDERED: Potassium Chloride 40 MEQ, Lidocaine 1% 2 ML in 0.9 % Sodium Chloride 500 ML IVPB ONE (17:17)
[2020-04-22] MEDS ORDERED: MethylPREDNISolone 40 MG/ML VIAL IVP ONE (17:32)
[2020-04-22] MEDS ORDERED: Ipratropium/Albuterol Neb 3 ML IH ONE (17:32)
[2020-04-22] MEDS: *HR* Heparin 5,000 UNIT/ML VIAL SQ SCH (17:55)
[2020-04-22] MEDS: Ondansetron 4 MG/2 ML VIAL IVP PRN (21:51)
[2020-04-22] MEDS: *HR* LORazepam 1 MG TABLET PO PRN (21:51)
[2020-04-22] MEDS: Ipratropium/Albuterol Neb 3 ML IH SCH (22:28)
[2020-04-22] MEDS: Famotidine 20 MG TABLET PO SCH (23:38)
[2020-04-23] MEDS ORDERED: Melatonin 3 MG TABLET PO PRN (00:52)
[2020-04-23 03:27] LABS: Hematocrit 35.1 % (35.3-44.9); Hemoglobin 11.6 g/dL (11.5-15.4); Mean Corpuscular Hemoglobin 31.9 pg (28.0-33.3); Mean Corpuscular Volume 96.4 fL (83.0-100.0); Mean Platelet Volume 9.1 fL (9.4-12.4); Platelet Count 338 K/mcL (140-400); Red Blood Count 3.64 M/mcL (3.82-4.97); Red Cell Distribution Width 13.5 % (11.5-14.5); White Blood Count 8.3 K/mcL (4.3-11.1)
[2020-04-23 03:50] LABS: BUN/Creatinine Ratio 20 (6-26); Blood Urea Nitrogen 14 mg/dL (8-23); Calcium 8.9 mg/dL (8.6-10.3); Carbon Dioxide 26 mEq/L (23-29); Chloride 104 mEq/L (98-107); Glucose 154 mg/dL (70-105); Osmolality,Calculated 294 (280-300); Sodium 140 mEq/L (136-145); eGFR For African Americans > 60 (> 60); eGFR For Non-African Americans > 60 (> 60)
[2020-04-23] MEDS: Ipratropium/Albuterol Neb 3 ML IH SCH ×4 (03:57→21:53)
[2020-04-23] MEDS: *HR* Heparin 5,000 UNIT/ML VIAL SQ SCH (05:36)
[2020-04-23] MEDS: Ondansetron 4 MG/2 ML VIAL IVP PRN ×2 (07:35→17:37)
[2020-04-23] MEDS ORDERED: MethylPREDNISolone 40 MG/ML VIAL IVP SCH (09:00)
[2020-04-23] MEDS ORDERED: Isovue-370 500 ML BOTTLE IVP ONE (09:51)
[2020-04-23] MEDS: Furosemide 40 MG/4 ML VIAL IVP SCH ×2 (12:20→20:18)
[2020-04-23] MEDS: Famotidine 20 MG TABLET PO SCH ×2 (12:20→19:55)
[2020-04-23] MEDS: *HR* LORazepam 1 MG TABLET PO PRN (12:22)
[2020-04-23] MEDS: *HR* OxyCODONE Immed Rel 5 MG TABLET PO PRN (19:55)
[2020-04-23] MEDS ORDERED: *HR* Labetalol 20 MG/4 ML SYRINGE IVP ONE (20:25)
[2020-04-24] MEDS: Ipratropium/Albuterol Neb 3 ML IH SCH ×4 (04:13→22:02)
[2020-04-24] MEDS ORDERED: *HR* Enoxaparin 40 MG/0.4 ML SYRINGE SQ SCH (06:00)
[2020-04-24] MEDS ORDERED: predniSONE 20 MG TABLET PO SCH (09:00)
[2020-04-24] MEDS: Furosemide 40 MG/4 ML VIAL IVP SCH (09:43)
[2020-04-24] MEDS: Famotidine 20 MG TABLET PO SCH (09:44)
[2020-04-24 11:12] LABS: BUN/Creatinine Ratio 19 (6-26); Blood Urea Nitrogen 19 mg/dL (8-23); Calcium 9.4 mg/dL (8.6-10.3); Carbon Dioxide 28 mEq/L (23-29); Chloride 102 mEq/L (98-107); Glucose 84 mg/dL (70-105); Magnesium 2.1 mg/dL (1.6-2.6); Osmolality,Calculated 295 (280-300); Potassium 3.4 mEq/L (3.5-5.1); Sodium 142 mEq/L (136-145); eGFR For African Americans > 60 (> 60); eGFR For Non-African Americans 55 (> 60)
[2020-04-24] MEDS ORDERED: *HR* LORazepam 1 MG TABLET PO PRN (14:46)
[2020-04-24] MEDS: Ondansetron 4 MG/2 ML VIAL IVP PRN (18:04)
[2020-04-24] MEDS: *HR* OxyCODONE Immed Rel 5 MG TABLET PO PRN ×2 (18:04→22:00)
[2020-04-24] MEDS ORDERED: *HR* LORazepam 1 MG TABLET PO SCH (21:00)
[2020-04-24] MEDS: Melatonin 3 MG TABLET PO SCH (21:55)
[2020-04-25] MEDS: Ondansetron 4 MG/2 ML VIAL IVP PRN (02:08)
[2020-04-25] MEDS: *HR* OxyCODONE Immed Rel 5 MG TABLET PO PRN (02:08)
[2020-04-25 04:05] LABS: BUN/Creatinine Ratio 22 (6-26); Blood Urea Nitrogen 19 mg/dL (8-23); Calcium 9.2 mg/dL (8.6-10.3); Carbon Dioxide 28 mEq/L (23-29); Chloride 103 mEq/L (98-107); Glucose 97 mg/dL (70-105); Osmolality,Calculated 294 (280-300); Potassium 3.7 mEq/L (3.5-5.1); Sodium 141 mEq/L (136-145); eGFR For African Americans > 60 (> 60); eGFR For Non-African Americans > 60 (> 60)
[2020-04-25 04:07] LABS: Hematocrit 38.7 % (35.3-44.9); Hemoglobin 12.5 g/dL (11.5-15.4); Mean Corpuscular HGB Conc 32.3 g/dL (31.6-35.5); Mean Platelet Volume 9.3 fL (9.4-12.4); Platelet Count 408 K/mcL (140-400); Red Blood Count 3.91 M/mcL (3.82-4.97); Red Cell Distribution Width 14.1 % (11.5-14.5); White Blood Count 12.4 K/mcL (4.3-11.1)
[2020-04-25] MEDS: Ipratropium/Albuterol Neb 3 ML IH SCH ×4 (04:08→21:50)
[2020-04-25 04:22] LABS: Carcinoembryonic Antigen 85.3 ng/mL (Less than 5.0)
[2020-04-25] MEDS ORDERED: *HR* Succinylcholine 200 MG/10 ML VIAL IVP ONE (08:16)
[2020-04-25] MEDS ORDERED: *HR* Propofol 200 MG/20 ML VIAL IVP ONE (08:16)
[2020-04-25] MEDS ORDERED: Dexamethasone 4 MG/ML VIAL ONE (08:16)
[2020-04-25] MEDS ORDERED: *HR* Rocuronium Bromide 50 MG/5 ML VIAL ONE (08:16)
[2020-04-25] MEDS ORDERED: *HR* FentaNYL (PF) 100 MCG/2 ML VIAL ONE (08:16)
[2020-04-25] MEDS ORDERED: Ondansetron 4 MG/2 ML VIAL ONE (08:16)
[2020-04-25] MEDS ORDERED: Lidocaine -MPF 4% 5 ML AMPUL ONE (08:16)
[2020-04-25] MEDS ORDERED: Lidocaine -MPF 2% 2 ML VIAL ONE (08:16)
[2020-04-25] MEDS ORDERED: Lidocaine 1% 0 ML ONE (08:26)
[2020-04-25] MEDS ORDERED: (Roflumilast [Daliresp] 500 MCG) PO SCH (09:00)
[2020-04-25] MEDS ORDERED: DilTIAZem CD (24hr) 240 MG CAP.ER.24H PO SCH (09:00)
[2020-04-25] MEDS ORDERED: EPHEDrine 50 MG/ML VIAL ONE (09:01)
[2020-04-25] MEDS ORDERED: Clindamycin 900 MG/50 ML 900 MG/50 ML IV.SOLN IVPB ONE (09:01)
[2020-04-25] MEDS ORDERED: *HR* PHENYLEPHRINE 1,000 MCG/10 ML SYRINGE IVP ONE (09:36)
[2020-04-25] MEDS ORDERED: Sugammadex Sodium 200 MG/2 ML VIAL IV ONE (10:15)
[2020-04-25] MEDS ORDERED: Albuterol 2.5 MG/3 ML NEBULIZER IH ONE (10:33)
[2020-04-25] MEDS ORDERED: *HR* OxyCODONE/APAP 5/325 TABLET PO ONE (10:37)
[2020-04-25] MEDS ORDERED: Albuterol 2.5 MG/3 ML NEBULIZER ONE (10:39)
[2020-04-25] MEDS: *HR* FentaNYL (PF) 100 MCG/2 ML VIAL IVP PRN ×2 (10:49→10:58)
[2020-04-25] MEDS ORDERED: Ondansetron 4 MG/2 ML VIAL IVP PRN (11:39)
[2020-04-25] MEDS ORDERED: Melatonin 3 MG TABLET PO PRN (11:39)
[2020-04-25] MEDS ORDERED: *HR* LORazepam 1 MG TABLET PO PRN (11:39)
[2020-04-25] MEDS ORDERED: Acetaminophen 325 MG TABLET PO PRN (11:39)
[2020-04-25] MEDS ORDERED: Naloxone 0.4 MG/ML INJ IVP PRN (11:39)
[2020-04-25] MEDS: Ketorolac 15 MG/ML VIAL IVP SCH ×2 (12:24→17:53)
[2020-04-25] MEDS: 0.9 % Sodium Chloride 1,000 ML IVC SCH (12:24)
[2020-04-25] MEDS ORDERED: DilTIAZem CD (24hr) 120 MG CAP.ER.24H PO ONE (14:43)
[2020-04-25] MEDS: *HR* Heparin 5,000 UNIT/ML VIAL SQ SCH ×2 (15:25→22:07)
[2020-04-25] MEDS: Gabapentin 300 MG CAPSULE PO SCH ×2 (15:25→22:07)
[2020-04-25] MEDS ORDERED: Bumetanide 1 MG TABLET PO SCH (21:00)
[2020-04-25] MEDS: *HR* LORazepam 1 MG TABLET PO SCH (22:05)
[2020-04-25] MEDS: Melatonin 3 MG TABLET PO SCH (22:06)
[2020-04-26] MEDS: Ketorolac 15 MG/ML VIAL IVP SCH ×5 (01:05→23:32)
[2020-04-26] MEDS: 0.9 % Sodium Chloride 1,000 ML IVC SCH (01:07)
[2020-04-26 01:49] LABS: Hematocrit 33.9 % (35.3-44.9); Mean Corpuscular HGB Conc 32.2 g/dL (31.6-35.5); Mean Corpuscular Hemoglobin 31.6 pg (28.0-33.3); Mean Corpuscular Volume 98.3 fL (83.0-100.0); Mean Platelet Volume 9.1 fL (9.4-12.4); Platelet Count 297 K/mcL (140-400); Red Blood Count 3.45 M/mcL (3.82-4.97); Red Cell Distribution Width 13.6 % (11.5-14.5); White Blood Count 10.6 K/mcL (4.3-11.1)
[2020-04-26 01:51] LABS: Hemoglobin 10.9 g/dL (11.5-15.4)
[2020-04-26 02:01] LABS: BUN/Creatinine Ratio 29 (6-26); Blood Urea Nitrogen 18 mg/dL (8-23); Calcium 8.3 mg/dL (8.6-10.3); Carbon Dioxide 24 mEq/L (23-29); Chloride 105 mEq/L (98-107); Glucose 127 mg/dL (70-105); Osmolality,Calculated 291 (280-300); Potassium 4.1 mEq/L (3.5-5.1); Sodium 139 mEq/L (136-145); eGFR For African Americans > 60 (> 60); eGFR For Non-African Americans > 60 (> 60)
[2020-04-26] MEDS: Ipratropium/Albuterol Neb 3 ML IH SCH (03:46)
[2020-04-26] MEDS ORDERED: *HR* Enoxaparin 40 MG/0.4 ML SYRINGE SQ SCH (06:00)
[2020-04-26] MEDS: *HR* Heparin 5,000 UNIT/ML VIAL SQ SCH ×3 (06:35→20:39)
[2020-04-26] MEDS: *HR* OxyCODONE Immed Rel 5 MG TABLET PO PRN ×3 (08:16→20:37)
[2020-04-26] MEDS: Gabapentin 300 MG CAPSULE PO SCH ×3 (08:17→20:37)
[2020-04-26] MEDS: predniSONE 20 MG TABLET PO SCH (08:17)
[2020-04-26] MEDS: DALIRESP 500 MCG PO SCH (08:21)
[2020-04-26] MEDS ORDERED: DilTIAZem CD (24hr) 240 MG CAP.ER.24H PO SCH (09:00)
[2020-04-26] MEDS ORDERED: DilTIAZem CD (24hr) 120 MG CAP.ER.24H PO ONE (09:19)
[2020-04-26] MEDS: Levalbuterol Neb 1.25 MG/3 ML IH SCH ×3 (10:08→21:37)
[2020-04-26] MEDS: *HR* LORazepam 1 MG TABLET PO SCH (20:37)
[2020-04-26] MEDS: Melatonin 3 MG TABLET PO SCH (20:38)
[2020-04-27] MEDS: Levalbuterol Neb 1.25 MG/3 ML IH SCH ×4 (03:43→21:57)
[2020-04-27 05:07] LABS: BUN/Creatinine Ratio 29 (6-26); Blood Urea Nitrogen 19 mg/dL (8-23); Calcium 8.6 mg/dL (8.6-10.3); Carbon Dioxide 26 mEq/L (23-29); Chloride 105 mEq/L (98-107); Glucose 105 mg/dL (70-105); Osmolality,Calculated 289 (280-300); Sodium 138 mEq/L (136-145); eGFR For African Americans > 60 (> 60); eGFR For Non-African Americans > 60 (> 60)
[2020-04-27 05:08] LABS: Hematocrit 34.9 % (35.3-44.9); Hemoglobin 11.3 g/dL (11.5-15.4); Mean Corpuscular HGB Conc 32.4 g/dL (31.6-35.5); Mean Corpuscular Hemoglobin 32.3 pg (28.0-33.3); Mean Corpuscular Volume 99.7 fL (83.0-100.0); Mean Platelet Volume 9.3 fL (9.4-12.4); Platelet Count 294 K/mcL (140-400); Red Cell Distribution Width 13.8 % (11.5-14.5); White Blood Count 11.6 K/mcL (4.3-11.1)
[2020-04-27] MEDS: Ketorolac 15 MG/ML VIAL IVP SCH ×3 (05:43→17:42)
[2020-04-27] MEDS: *HR* Heparin 5,000 UNIT/ML VIAL SQ SCH ×3 (05:44→20:57)
[2020-04-27] MEDS: *HR* OxyCODONE Immed Rel 5 MG TABLET PO PRN ×2 (05:45→21:05)
[2020-04-27] MEDS: predniSONE 20 MG TABLET PO SCH (07:42)
[2020-04-27] MEDS: DilTIAZem CD (24hr) 180 MG CAP.ER.24H PO SCH (07:42)
[2020-04-27] MEDS: Gabapentin 300 MG CAPSULE PO SCH ×3 (07:42→20:56)
[2020-04-27] MEDS: DALIRESP 500 MCG PO SCH (07:44)
[2020-04-27] MEDS: Melatonin 3 MG TABLET PO SCH (20:56)
[2020-04-27] MEDS: *HR* LORazepam 1 MG TABLET PO SCH (20:56)
[2020-04-28] MEDS: Ketorolac 15 MG/ML VIAL IVP SCH ×4 (00:12→18:59)
[2020-04-28 01:21] LABS: Hematocrit 34.5 % (35.3-44.9); Hemoglobin 11.2 g/dL (11.5-15.4); Mean Corpuscular HGB Conc 32.5 g/dL (31.6-35.5); Mean Corpuscular Hemoglobin 31.5 pg (28.0-33.3); Mean Corpuscular Volume 96.9 fL (83.0-100.0); Platelet Count 283 K/mcL (140-400); Red Blood Count 3.56 M/mcL (3.82-4.97); Red Cell Distribution Width 13.6 % (11.5-14.5); White Blood Count 13.2 K/mcL (4.3-11.1)
[2020-04-28 01:41] LABS: BUN/Creatinine Ratio 30 (6-26); Blood Urea Nitrogen 23 mg/dL (8-23); Calcium 9.1 mg/dL (8.6-10.3); Carbon Dioxide 25 mEq/L (23-29); Chloride 105 mEq/L (98-107); Glucose 121 mg/dL (70-105); Osmolality,Calculated 289 (280-300); Potassium 4.6 mEq/L (3.5-5.1); Sodium 137 mEq/L (136-145); eGFR For African Americans > 60 (> 60); eGFR For Non-African Americans > 60 (> 60)
[2020-04-28] MEDS: Levalbuterol Neb 1.25 MG/3 ML IH SCH ×4 (03:42→22:54)
[2020-04-28] MEDS: *HR* Heparin 5,000 UNIT/ML VIAL SQ SCH ×3 (05:29→22:00)
[2020-04-28] MEDS: *HR* OxyCODONE Immed Rel 5 MG TABLET PO PRN ×2 (05:32→14:30)
[2020-04-28] MEDS: predniSONE 20 MG TABLET PO SCH (08:36)
[2020-04-28] MEDS: DilTIAZem CD (24hr) 180 MG CAP.ER.24H PO SCH (08:36)
[2020-04-28] MEDS: Gabapentin 300 MG CAPSULE PO SCH ×3 (08:36→21:58)
[2020-04-28] MEDS: DALIRESP 500 MCG PO SCH (08:37)
[2020-04-28] MEDS ORDERED: Furosemide 20 MG TABLET PO ONE (11:00)
[2020-04-28] MEDS: *HR* LORazepam 1 MG TABLET PO SCH (21:58)
[2020-04-28] MEDS: Melatonin 3 MG TABLET PO SCH ×2 (21:58→22:16)
[2020-04-29] MEDS: Ketorolac 15 MG/ML VIAL IVP SCH ×4 (00:07→18:12)
[2020-04-29] MEDS: *HR* OxyCODONE Immed Rel 5 MG TABLET PO PRN ×2 (02:52→20:57)
[2020-04-29] MEDS: Levalbuterol Neb 1.25 MG/3 ML IH SCH ×4 (06:01→22:33)
[2020-04-29] MEDS: *HR* Heparin 5,000 UNIT/ML VIAL SQ SCH ×3 (06:47→20:57)
[2020-04-29] MEDS: DilTIAZem CD (24hr) 180 MG CAP.ER.24H PO SCH (08:14)
[2020-04-29] MEDS: Gabapentin 300 MG CAPSULE PO SCH ×3 (08:15→20:57)
[2020-04-29] MEDS: Bumetanide 1 MG TABLET PO SCH ×2 (08:15→20:57)
[2020-04-29] MEDS: predniSONE 20 MG TABLET PO SCH (08:15)
[2020-04-29] MEDS: DALIRESP 500 MCG PO SCH (08:15)
[2020-04-29] MEDS: *HR* LORazepam 1 MG TABLET PO SCH (20:57)
[2020-04-29] MEDS: Melatonin 3 MG TABLET PO SCH (20:57)
[2020-04-30] MEDS: Levalbuterol Neb 1.25 MG/3 ML IH SCH ×2 (03:20→11:16)
[2020-04-30] MEDS: *HR* Heparin 5,000 UNIT/ML VIAL SQ SCH (06:27)
[2020-04-30 06:58] VITALS: BP 147/81
[2020-04-30] MEDS: DilTIAZem CD (24hr) 180 MG CAP.ER.24H PO SCH (08:14)
[2020-04-30] MEDS: Bumetanide 1 MG TABLET PO SCH (08:14)
[2020-04-30] MEDS: predniSONE 20 MG TABLET PO SCH (08:14)
[2020-04-30] MEDS: Gabapentin 300 MG CAPSULE PO SCH (08:14)
[2020-04-30] MEDS: DALIRESP 500 MCG PO SCH (08:15)
== END 2020-04-30 13:30 | disposition home health service (06) | DRG 166 ==
LOC: EMEROOARM 13:19 → 2ANU 13:19 → SUATTDRO 04-23 14:38 → 2NNU 04-25 11:38
PROVIDERS: ADMIT Internal Medicine; ATTEND Internal Medicine

== ENCOUNTER 2020-06-11 09:03 | Inpatient (IN) ==
[2020-06-11] MEDS ORDERED: Ipratropium/Albuterol Neb 3 ML IH ONE (09:14)
[2020-06-11] MEDS ORDERED: Vancomycin 1,750 MG/517.5 ML IV.SOLN IVPB ONE (09:17)
[2020-06-11] MEDS ORDERED: Cefepime HCl 1,000 MG in 0.9 % Sodium Chloride Mini Bag 100 ML IVPB STA (09:17)
[2020-06-11 10:07] LABS: VBG HCO3 26 mEq/L (21-27); VBG PCO2 41 mmHg (41-51); VBG PH 7.42 pH Units (7.32-7.42); VBG PO2 179 mmHg (25-50)
[2020-06-11] MEDS ORDERED: 0.9 % Sodium Chloride 1,000 ML IVC ONE ×2 (10:14→10:47)
[2020-06-11 10:24] LABS: Mean Corpuscular Volume 98.7 fL (83.0-100.0); Nucleated Red Blood Cells 0.2 /100 WBC (0); Red Cell Distribution Width 14.8 % (11.5-14.5)
[2020-06-11 10:26] LABS: Hematocrit 22.6 % (35.3-44.9); Hemoglobin 7.1 g/dL (11.5-15.4); Immature Granulocytes % 10.8 % (0-4); Immature Platelets 4.3 % (1.1-6.1); Lymphocytes # 4.9 K/mcL (0.6-4.6); Lymphocytes % 12.1 %; Mean Corpuscular HGB Conc 31.4 g/dL (31.6-35.5); Mean Platelet Volume 10.1 fL (9.4-12.4); Monocytes # 9.4 K/mcL (0.0-1.3); Monocytes % 23.3 %; Neutrophils # 21.7 K/mcL (1.6-8.9); Red Blood Count 2.29 M/mcL (3.82-4.97); Segmented Neutrophils % 53.8 %
[2020-06-11 10:28] LABS: Platelet Count 45 K/mcL (140-400)
[2020-06-11 10:29] LABS: Alanine Aminotransferase 16 Units/L (7-52); Albumin 3.3 g/dL (3.5-5.7); Albumin/Globulin Ratio 1.5 (1.1-2.2); Alkaline Phosphatase 75 Units/L (34-104); Aspartate Amino Transferase 45 Units/L (13-39); BUN/Creatinine Ratio 12 (6-26); Bilirubin,Total 0.4 mg/dL (0.3-1.0); Blood Urea Nitrogen 9 mg/dL (8-23); Calcium 8.1 mg/dL (8.6-10.3); Carbon Dioxide 25 mEq/L (23-29); Chloride 104 mEq/L (98-107); Globulin 2.2 g/dL (2.4-3.5); Glucose 79 mg/dL (70-105); Osmolality,Calculated 284 (280-300); Potassium 3.8 mEq/L (3.5-5.1); Sodium 138 mEq/L (136-145); Total Protein 5.5 g/dL (6.4-8.9); Troponin I 0.11 ng/mL (< 0.04); eGFR For African Americans > 60 (> 60); eGFR For Non-African Americans > 60 (> 60)
[2020-06-11 10:36] LABS: White Blood Count 40.3 K/mcL (4.3-11.1)
[2020-06-11 11:05] LABS: Bacteria,Urine Few per hpf (None-Few); Bilirubin,Urine Negative (Negative); Blood,Urine Negative (Negative); Clarity,Urine Turbid (Clear); Color,Urine Yellow (Yellow); Glucose,Urine (UA) Normal (Normal); Hyaline Casts,Urine Few per lpf (None Seen); Ketones,Urine Negative (Negative); Leukocyte Esterase,Urine Negative (Negative); Mucus,Urine Many per lpf (None-Few); Nitrite,Urine Negative (Negative); PH,Urine 5.5 pH Units (5.0-8.0); Protein,Urine 30 mg/dL (Neg-Trace); RBC,Urine 0-3 per hpf (0-3); Specific Gravity,Urine 1.029 (1.010-1.025); Squamous Epithelial Cell,Urine Few per hpf (None-Few); Urobilinogen,Urine Normal (Normal)
[2020-06-11 11:09] LABS: Adenovirus Not Detected (Not Detect); Bordetella Pertussis Not Detected (Not Detect); Chlamydophila pneumoniae Not Detected (Not Detect); Coronavirus 229E Not Detected (Not Detect); Coronavirus HKU1 Not Detected (Not Detect); Coronavirus NL63 Not Detected (Not Detect); Coronavirus OC43 Not Detected (Not Detect); Human Metapneumovirus Not Detected (Not Detect); Human Rhinovirus/Enterovirus Not Detected (Not Detect); Influenza A Subtype 2009 H1 Not Detected (Not Detect); Influenza B Not Detected (Not Detect); Mycoplasma pneumoniae Not Detected (Not Detect); Parainfluenza Virus 1 Not Detected (Not Detect); Parainfluenza Virus 2 Not Detected (Not Detect); Parainfluenza Virus 3 Not Detected (Not Detect); Parainfluenza Virus 4 Not Detected (Not Detect); Respiratory Syncytial Virus Not Detected (Not Detect); SARS-CoV-2 Not Detected (Not Detect)
[2020-06-11] MEDS ORDERED: Ondansetron 4 MG/2 ML VIAL IVP PRN (11:15)
[2020-06-11] MEDS ORDERED: Naloxone 0.4 MG/ML INJ IVP PRN (11:15)
[2020-06-11] MEDS ORDERED: Isovue-370 500 ML BOTTLE IVP ONE (11:16)
[2020-06-11 11:20] LABS: Anisocytosis 1+ (Not Present); Macrocytosis Present (Not Present); Platelet Estimate Decreased (Normal)
[2020-06-11] MEDS ORDERED: Ipratropium/Albuterol Neb 3 ML IH PRN (11:22)
[2020-06-11] MEDS ORDERED: Nitroglycerin 0.4 MG TAB.SUBL SL PRN (11:24)
[2020-06-11] MEDS ORDERED: Vancomycin 1,750 MG in 0.9 % Sodium Chloride 250 ML IVPB SCH (12:00)
[2020-06-11] MEDS: 0.9 % Sodium Chloride 1,000 ML IVC SCH (13:17)
[2020-06-11 15:59] LABS: Hematocrit 19.8 % (35.3-44.9); Hemoglobin 6.2 g/dL (11.5-15.4); Immature Platelets 3.5 % (1.1-6.1); Mean Corpuscular HGB Conc 31.3 g/dL (31.6-35.5); Mean Corpuscular Hemoglobin 31.5 pg (28.0-33.3); Mean Corpuscular Volume 100.5 fL (83.0-100.0); Mean Platelet Volume 9.7 fL (9.4-12.4); Nucleated Red Blood Cells 0.2 /100 WBC (0); Red Blood Count 1.97 M/mcL (3.82-4.97); Red Cell Distribution Width 15.2 % (11.5-14.5)
[2020-06-11 16:01] LABS: White Blood Count 37.2 K/mcL (4.3-11.1)
[2020-06-11 16:02] LABS: Platelet Count 32 K/mcL (140-400)
[2020-06-11] MEDS ORDERED: 0.9 % Sodium Chloride 250 ML IVC SCH (16:15)
[2020-06-11 16:22] LABS: Basophils # 0.4 K/mcL (0.0-0.2); Lymphocytes # 19.3 K/mcL (0.6-4.6); Neutrophils # 16.7 K/mcL (1.6-8.9)
[2020-06-11 16:23] LABS: Platelet Estimate Marked Decrease (Normal); Reactive Lymphocytes Present (Not Present)
[2020-06-11] MEDS: Cefepime HCl 1,000 MG in Water for inj. (sterile) 10 ML IVP SCH (17:15)
[2020-06-11] MEDS ORDERED: DilTIAZem CD (24hr) 120 MG CAP.ER.24H PO ONE (17:54)
[2020-06-11] MEDS ORDERED: *HR* Heparin 5,000 UNIT/ML VIAL SQ SCH (18:00)
[2020-06-11] MEDS: *HR* LORazepam 1 MG TABLET PO PRN (19:21)
[2020-06-11] MEDS: Melatonin 3 MG TABLET PO SCH (19:22)
[2020-06-11] MEDS: Magnesium Oxide 400 MG TABLET PO SCH (19:23)
[2020-06-11 22:46] LABS: Hematocrit 22.9 % (35.3-44.9); Hemoglobin 7.6 g/dL (11.5-15.4); Immature Platelets 4.1 % (1.1-6.1); Mean Corpuscular HGB Conc 33.2 g/dL (31.6-35.5); Mean Corpuscular Hemoglobin 31.3 pg (28.0-33.3); Mean Corpuscular Volume 94.2 fL (83.0-100.0); Mean Platelet Volume 10.2 fL (9.4-12.4); Nucleated Red Blood Cells 0.3 /100 WBC (0); Red Blood Count 2.43 M/mcL (3.82-4.97); Red Cell Distribution Width 15.2 % (11.5-14.5)
[2020-06-11 22:51] LABS: White Blood Count 41.4 K/mcL (4.3-11.1)
[2020-06-11 22:52] LABS: Platelet Count 30 K/mcL (140-400)
[2020-06-11 23:11] LABS: Monocytes # 3.3 K/mcL (0.0-1.3); Neutrophils # 20.3 K/mcL (1.6-8.9); Platelet Estimate Marked Decrease (Normal); Reactive Lymphocytes Present (Not Present); Smudge Cells Present (Not Present)
[2020-06-11] MEDS: Vancomycin 1,500 MG/265 ML IV.SOLN IVPB SCH (23:39)
[2020-06-12] MEDS ORDERED: *HR* Metoprolol 5 MG/5 ML VIAL IVP ONE (00:48)
[2020-06-12] MEDS: Cefepime HCl 1,000 MG in Water for inj. (sterile) 10 ML IVP SCH ×4 (01:01→23:09)
[2020-06-12] MEDS: Levalbuterol Neb 0.63 MG/3 ML IH PRN ×2 (02:21→11:28)
[2020-06-12] MEDS: 0.9 % Sodium Chloride 1,000 ML IVC SCH (04:11)
[2020-06-12 04:49] LABS: Immature Reticulocyte % 12.4 % (11.0-38.0); Retculocyte # 0.01 M/mcL (0.05-0.10); Reticulocyte % 0.3 % (1.6-2.8)
[2020-06-12 04:58] LABS: Hemoglobin 7.6 g/dL (11.5-15.4); Nucleated Red Blood Cells 0.3 /100 WBC (0)
[2020-06-12 04:59] LABS: Hematocrit 23.3 % (35.3-44.9); Immature Platelets 3.9 % (1.1-6.1); Mean Corpuscular HGB Conc 32.6 g/dL (31.6-35.5); Mean Corpuscular Hemoglobin 31.1 pg (28.0-33.3); Mean Corpuscular Volume 95.5 fL (83.0-100.0); Mean Platelet Volume 10.7 fL (9.4-12.4); Red Blood Count 2.44 M/mcL (3.82-4.97); Red Cell Distribution Width 15.6 % (11.5-14.5)
[2020-06-12 05:08] LABS: White Blood Count 42.9 K/mcL (4.3-11.1)
[2020-06-12 05:09] LABS: % Iron Saturation 50 % (15-50); BUN/Creatinine Ratio 10 (6-26); Blood Urea Nitrogen 6 mg/dL (8-23); Calcium 7.5 mg/dL (8.6-10.3); Carbon Dioxide 22 mEq/L (23-29); Chloride 109 mEq/L (98-107); Glucose 83 mg/dL (70-105); Iron 89 mcg/dL (50-170); Magnesium 1.1 mg/dL (1.6-2.6); Osmolality,Calculated 285 (280-300); Phosphorous 1.6 mg/dL (2.7-4.5); Platelet Count 24 K/mcL (140-400); Potassium 3.7 mEq/L (3.5-5.1); Sodium 139 mEq/L (136-145); Transferrin 127 mg/dL (203-362); eGFR For African Americans > 60 (> 60); eGFR For Non-African Americans > 60 (> 60)
[2020-06-12 05:14] LABS: Lymphocytes # 1.7 K/mcL (0.6-4.6); Monocytes # 2.6 K/mcL (0.0-1.3); Neutrophils # 35.2 K/mcL (1.6-8.9)
[2020-06-12 05:15] LABS: Anisocytosis 1+ (Not Present); Platelet Estimate Marked Decrease (Normal); Reactive Lymphocytes Present (Not Present); Smudge Cells Present (Not Present)
[2020-06-12 05:16] LABS: Toxic Granulation Present (Not Present); Toxic Vacuolation Present (Not Present)
[2020-06-12] MEDS: DilTIAZem CD (24hr) 240 MG CAP.ER.24H PO SCH (05:34)
[2020-06-12] MEDS ORDERED: Potassium Phosphate 44 MEQ in 0.9 % Sodium Chloride 250 ML IVPB ONE (07:30)
[2020-06-12] MEDS: Magnesium Oxide 400 MG TABLET PO SCH ×2 (08:39→20:12)
[2020-06-12] MEDS: predniSONE 10 MG TABLET PO SCH (08:40)
[2020-06-12] MEDS: Vancomycin 1,500 MG/265 ML IV.SOLN IVPB SCH (11:20)
[2020-06-12] MEDS: *HR* LORazepam 1 MG TABLET PO PRN (13:14)
[2020-06-12] MEDS ORDERED: Saline Nasal Spray 44 ML BOTTLE NS PRN (13:25)
[2020-06-12] MEDS ORDERED: *HR* OxyCODONE Immed Rel 5 MG TABLET PO PRN ×2 (15:33→17:55)
[2020-06-12] MEDS ORDERED: Perflutren Lipid Microsphere 1.3 ML in 0.9 % Sodium Chloride 8.7 ML IVP PRN (17:14)
[2020-06-12] MEDS ORDERED: Ipratropium/Albuterol Neb 3 ML IH PRN (17:45)
[2020-06-12] MEDS ORDERED: Ondansetron ODT 4 MG TAB.RAPDIS PO PRN (17:54)
[2020-06-12] MEDS: Bumetanide 1 MG TABLET PO SCH (19:14)
[2020-06-12] MEDS: Gabapentin 300 MG CAPSULE PO SCH (20:11)
[2020-06-12] MEDS: Melatonin 3 MG TABLET PO SCH (20:12)
[2020-06-12] MEDS ORDERED: Vancomycin 1,500 MG/265 ML IV.SOLN IVPB SCH (22:00)
[2020-06-13] MEDS: *HR* LORazepam 1 MG TABLET PO PRN (03:22)
[2020-06-13] MEDS ORDERED: lisinopriL 10 MG TABLET PO SCH (09:00)
[2020-06-13] MEDS: Cefepime HCl 1,000 MG in Water for inj. (sterile) 10 ML IVP SCH ×2 (09:38→15:42)
[2020-06-13] MEDS: Magnesium Oxide 400 MG TABLET PO SCH ×2 (09:39→21:59)
[2020-06-13] MEDS: Bumetanide 1 MG TABLET PO SCH ×3 (09:39→17:00)
[2020-06-13] MEDS: (Roflumilast [Daliresp] 500 MCG Tablet) PO SCH (09:39)
[2020-06-13] MEDS: Cholecalciferol (D-3) 1,000 UNIT (25MCG) TABLET PO SCH (09:39)
[2020-06-13] MEDS: Isosorbide MONOnitrate (24 HR) 30 MG TAB.ER.24H PO SCH (09:39)
[2020-06-13] MEDS: Vitamin E 200 UNIT (90MG) CAPSULE PO SCH (09:39)
[2020-06-13] MEDS: Loratadine 10 MG TABLET PO SCH (09:39)
[2020-06-13] MEDS: Gabapentin 300 MG CAPSULE PO SCH ×3 (09:39→21:59)
[2020-06-13] MEDS: DilTIAZem CD (24hr) 240 MG CAP.ER.24H PO SCH (09:39)
[2020-06-13] MEDS: Vitamin B Complex/Vit C/Vit E 1 EACH TABLET PO SCH (09:39)
[2020-06-13] MEDS: predniSONE 10 MG TABLET PO SCH (09:39)
[2020-06-13 10:56] LABS: Hemoglobin 7.5 g/dL (11.5-15.4); Mean Corpuscular Volume 97.1 fL (83.0-100.0)
[2020-06-13 10:58] LABS: Hematocrit 23.4 % (35.3-44.9); Immature Platelets 7.7 % (1.1-6.1); Mean Corpuscular HGB Conc 32.1 g/dL (31.6-35.5); Mean Corpuscular Hemoglobin 31.1 pg (28.0-33.3); Mean Platelet Volume 10.8 fL (9.4-12.4); Nucleated Red Blood Cells 0.7 /100 WBC (0); Red Blood Count 2.41 M/mcL (3.82-4.97); Red Cell Distribution Width 15.8 % (11.5-14.5)
[2020-06-13 11:04] LABS: Platelet Count 16 K/mcL (140-400); White Blood Count 36.9 K/mcL (4.3-11.1)
[2020-06-13 11:25] LABS: Alanine Aminotransferase 17 Units/L (7-52); Albumin 3.2 g/dL (3.5-5.7); Albumin/Globulin Ratio 1.5 (1.1-2.2); Alkaline Phosphatase 99 Units/L (34-104); Aspartate Amino Transferase 29 Units/L (13-39); BUN/Creatinine Ratio 11 (6-26); Bilirubin,Total 0.4 mg/dL (0.3-1.0); Blood Urea Nitrogen 6 mg/dL (8-23); Calcium 7.7 mg/dL (8.6-10.3); Carbon Dioxide 24 mEq/L (23-29); Chloride 110 mEq/L (98-107); Globulin 2.1 g/dL (2.4-3.5); Glucose 90 mg/dL (70-105); Magnesium 1.8 mg/dL (1.6-2.6); Osmolality,Calculated 287 (280-300); Potassium 3.4 mEq/L (3.5-5.1); Sodium 140 mEq/L (136-145); Total Protein 5.3 g/dL (6.4-8.9); Troponin I 0.09 ng/mL (< 0.04); Vancomycin,Trough 18 mcg/mL (5-10); eGFR For African Americans > 60 (> 60); eGFR For Non-African Americans > 60 (> 60)
[2020-06-13] MEDS ORDERED: Potassium Phosphate 44 MEQ in 0.9 % Sodium Chloride 250 ML IVPB ONE (12:09)
[2020-06-13] MEDS ORDERED: Calcium Gluconate 1gm/50mL 1 GM/50 ML BAG IVPB SCH (12:30)
[2020-06-13 12:31] LABS: Monocytes # 1.1 K/mcL (0.0-1.3); Neutrophils # 29.2 K/mcL (1.6-8.9)
[2020-06-13 12:32] LABS: Anisocytosis 1+ (Not Present); Platelet Estimate Marked Decrease (Normal)
[2020-06-13] MEDS: Vancomycin 1,250 MG/262.5 ML IV.SOLN IVPB SCH (13:51)
[2020-06-13] MEDS: Albumin 25% 25gram/100mL 25 GM/100 ML IV.SOLN IVPB SCH (18:39)
[2020-06-13] MEDS: Budesonide/Formoterol 160/4.5 1 PUFF INH IH SCH (21:27)
[2020-06-13] MEDS: Ipratropium/Albuterol Neb 3 ML IH SCH ×2 (21:27→21:34)
[2020-06-13] MEDS: Levalbuterol Neb 0.63 MG/3 ML IH PRN (21:29)
[2020-06-13] MEDS ORDERED: *HR* Metoprolol 5 MG/5 ML VIAL IVP PRN (21:56)
[2020-06-13] MEDS: Melatonin 3 MG TABLET PO SCH (22:00)
[2020-06-14] MEDS: Vancomycin 1,250 MG/262.5 ML IV.SOLN IVPB SCH ×3 (00:52→23:02)
[2020-06-14] MEDS: Cefepime HCl 1,000 MG in Water for inj. (sterile) 10 ML IVP SCH ×4 (00:53→23:03)
[2020-06-14] MEDS: *HR* LORazepam 1 MG TABLET PO PRN ×2 (02:30→18:46)
[2020-06-14] MEDS: Ipratropium/Albuterol Neb 3 ML IH SCH ×4 (03:54→22:17)
[2020-06-14 06:31] LABS: Nucleated Red Blood Cells 1.1 /100 WBC (0)
[2020-06-14 06:33] LABS: Hemoglobin 6.7 g/dL (11.5-15.4); Immature Platelets 13.3 % (1.1-6.1); Mean Corpuscular HGB Conc 31.9 g/dL (31.6-35.5); Mean Corpuscular Hemoglobin 30.5 pg (28.0-33.3); Mean Corpuscular Volume 95.5 fL (83.0-100.0); Red Cell Distribution Width 15.7 % (11.5-14.5)
[2020-06-14 06:49] LABS: Platelet Count 20 K/mcL (140-400); White Blood Count 33.3 K/mcL (4.3-11.1)
[2020-06-14 06:56] LABS: BUN/Creatinine Ratio 7 (6-26); Blood Urea Nitrogen 5 mg/dL (8-23); Calcium 7.6 mg/dL (8.6-10.3); Carbon Dioxide 27 mEq/L (23-29); Chloride 109 mEq/L (98-107); Glucose 87 mg/dL (70-105); Magnesium 1.6 mg/dL (1.6-2.6); Osmolality,Calculated 293 (280-300); Potassium 3.1 mEq/L (3.5-5.1); Sodium 143 mEq/L (136-145); eGFR For African Americans > 60 (> 60); eGFR For Non-African Americans > 60 (> 60)
[2020-06-14 07:10] LABS: Folate 12.2 ng/mL (3.0-16.0)
[2020-06-14 07:13] LABS: Vitamin B12 > 1500 pg/mL (250-1100)
[2020-06-14 07:26] LABS: Anisocytosis 1+ (Not Present); Monocytes # 3.3 K/mcL (0.0-1.3); Neutrophils # 23.3 K/mcL (1.6-8.9); Polychromasia 1+ (Not Present)
[2020-06-14 07:27] LABS: Platelet Estimate Marked Decrease (Normal)
[2020-06-14] MEDS ORDERED: Potassium Phosphate 44 MEQ in 0.9 % Sodium Chloride 250 ML IVPB ONE (07:57)
[2020-06-14] MEDS ORDERED: 0.9 % Sodium Chloride 250 ML IVC SCH (08:00)
[2020-06-14] MEDS ORDERED: Aspirin 81 MG TAB.CHEW PO SCH (09:00)
[2020-06-14] MEDS: Vitamin E 200 UNIT (90MG) CAPSULE PO SCH (09:03)
[2020-06-14] MEDS: Bumetanide 1 MG TABLET PO SCH (09:04)
[2020-06-14] MEDS: Isosorbide MONOnitrate (24 HR) 30 MG TAB.ER.24H PO SCH (09:04)
[2020-06-14] MEDS: Loratadine 10 MG TABLET PO SCH (09:04)
[2020-06-14] MEDS: Gabapentin 300 MG CAPSULE PO SCH ×3 (09:04→20:59)
[2020-06-14] MEDS: predniSONE 10 MG TABLET PO SCH (09:04)
[2020-06-14] MEDS: Cholecalciferol (D-3) 1,000 UNIT (25MCG) TABLET PO SCH (09:04)
[2020-06-14] MEDS: Vitamin B Complex/Vit C/Vit E 1 EACH TABLET PO SCH (09:04)
[2020-06-14] MEDS: Magnesium Oxide 400 MG TABLET PO SCH ×2 (09:04→20:59)
[2020-06-14] MEDS: DilTIAZem CD (24hr) 240 MG CAP.ER.24H PO SCH (09:04)
[2020-06-14] MEDS: Albumin 25% 25gram/100mL 25 GM/100 ML IV.SOLN IVPB SCH (09:06)
[2020-06-14] MEDS: (Roflumilast [Daliresp] 500 MCG Tablet) PO SCH (09:08)
[2020-06-14] MEDS: Budesonide/Formoterol 160/4.5 1 PUFF INH IH SCH ×2 (10:59→22:16)
[2020-06-14] MEDS: Melatonin 3 MG TABLET PO SCH (20:59)
[2020-06-15] MEDS: Ipratropium/Albuterol Neb 3 ML IH SCH ×4 (04:23→21:31)
[2020-06-15 07:04] LABS: Hemoglobin 8.1 g/dL (11.5-15.4); Nucleated Red Blood Cells 1.3 /100 WBC (0); Red Cell Distribution Width 15.5 % (11.5-14.5)
[2020-06-15 07:06] LABS: Immature Platelets 10.6 % (1.1-6.1); Mean Corpuscular HGB Conc 32.4 g/dL (31.6-35.5); Mean Corpuscular Hemoglobin 32.1 pg (28.0-33.3); Mean Corpuscular Volume 99.2 fL (83.0-100.0); Mean Platelet Volume 12.3 fL (9.4-12.4); Red Blood Count 2.52 M/mcL (3.82-4.97)
[2020-06-15 08:07] LABS: BUN/Creatinine Ratio 8 (6-26); Blood Urea Nitrogen 7 mg/dL (8-23); Calcium 7.7 mg/dL (8.6-10.3); Carbon Dioxide 20 mEq/L (23-29); Chloride 110 mEq/L (98-107); Glucose 91 mg/dL (70-105); Magnesium 1.9 mg/dL (1.6-2.6); Osmolality,Calculated 288 (280-300); Phosphorous 3.3 mg/dL (2.7-4.5); Sodium 140 mEq/L (136-145); eGFR For African Americans > 60 (> 60); eGFR For Non-African Americans 59 (> 60)
[2020-06-15 08:10] LABS: Platelet Count 38 K/mcL (140-400)
[2020-06-15 08:12] LABS: White Blood Count 31.9 K/mcL (4.3-11.1)
[2020-06-15 08:22] LABS: Lymphocytes # 1.9 K/mcL (0.6-4.6); Monocytes # 2.6 K/mcL (0.0-1.3); Neutrophils # 24.9 K/mcL (1.6-8.9)
[2020-06-15 08:23] LABS: Anisocytosis 1+ (Not Present); Platelet Estimate Decreased (Normal); Reactive Lymphocytes Present (Not Present)
[2020-06-15] MEDS: Cefepime HCl 1,000 MG in Water for inj. (sterile) 10 ML IVP SCH ×2 (08:24→15:38)
[2020-06-15] MEDS: Vitamin B Complex/Vit C/Vit E 1 EACH TABLET PO SCH (08:25)
[2020-06-15] MEDS: Magnesium Oxide 400 MG TABLET PO SCH ×2 (08:25→20:46)
[2020-06-15] MEDS: predniSONE 10 MG TABLET PO SCH (08:25)
[2020-06-15] MEDS: Gabapentin 300 MG CAPSULE PO SCH ×3 (08:25→20:47)
[2020-06-15] MEDS: Loratadine 10 MG TABLET PO SCH (08:25)
[2020-06-15] MEDS: Vitamin E 200 UNIT (90MG) CAPSULE PO SCH (08:25)
[2020-06-15] MEDS: Cholecalciferol (D-3) 1,000 UNIT (25MCG) TABLET PO SCH (08:25)
[2020-06-15] MEDS: Budesonide/Formoterol 160/4.5 1 PUFF INH IH SCH ×2 (11:01→21:31)
[2020-06-15] MEDS: Vancomycin 1,250 MG/262.5 ML IV.SOLN IVPB SCH (11:52)
[2020-06-15] MEDS: Levalbuterol Neb 0.63 MG/3 ML IH PRN (17:51)
[2020-06-15] MEDS ORDERED: Furosemide 40 MG/4 ML VIAL IVP ONE (18:50)
[2020-06-15] MEDS ORDERED: Bumetanide 1 MG/4 ML VIAL IVP ONE (19:09)
[2020-06-15] MEDS: *HR* LORazepam 1 MG TABLET PO PRN (21:44)
[2020-06-15] MEDS: Melatonin 3 MG TABLET PO SCH (23:23)
[2020-06-16] MEDS: Cefepime HCl 1,000 MG in Water for inj. (sterile) 10 ML IVP SCH ×3 (00:37→15:14)
[2020-06-16] MEDS: Vancomycin 1,250 MG/262.5 ML IV.SOLN IVPB SCH ×2 (00:46→11:14)
[2020-06-16 01:09] LABS: Calcium 8.2 mg/dL (8.6-10.3); Magnesium 1.8 mg/dL (1.6-2.6); Phosphorous 2.6 mg/dL (2.7-4.5); Potassium 4.2 mEq/L (3.5-5.1)
[2020-06-16 01:11] LABS: Hemoglobin 8.6 g/dL (11.5-15.4); Nucleated Red Blood Cells 1.7 /100 WBC (0); Red Cell Distribution Width 15.5 % (11.5-14.5)
[2020-06-16 01:13] LABS: Hematocrit 25.9 % (35.3-44.9); Immature Platelets 11.4 % (1.1-6.1); Mean Corpuscular HGB Conc 33.2 g/dL (31.6-35.5); Mean Corpuscular Hemoglobin 31.5 pg (28.0-33.3); Mean Corpuscular Volume 94.9 fL (83.0-100.0); Mean Platelet Volume 11.5 fL (9.4-12.4); Red Blood Count 2.73 M/mcL (3.82-4.97)
[2020-06-16 01:18] LABS: Platelet Count 63 K/mcL (140-400)
[2020-06-16 01:24] LABS: White Blood Count 37.5 K/mcL (4.3-11.1)
[2020-06-16 01:54] LABS: Lymphocytes # 6.8 K/mcL (0.6-4.6); Monocytes # 2.3 K/mcL (0.0-1.3); Neutrophils # 25.5 K/mcL (1.6-8.9)
[2020-06-16 01:55] LABS: Platelet Estimate Decreased (Normal); Reactive Lymphocytes Present (Not Present); Toxic Granulation Present (Not Present)
[2020-06-16] MEDS: Ipratropium/Albuterol Neb 3 ML IH SCH ×5 (03:39→22:43)
[2020-06-16] MEDS: Vitamin B Complex/Vit C/Vit E 1 EACH TABLET PO SCH (09:17)
[2020-06-16] MEDS: Cholecalciferol (D-3) 1,000 UNIT (25MCG) TABLET PO SCH (09:17)
[2020-06-16] MEDS: Bumetanide 1 MG TABLET PO SCH (09:18)
[2020-06-16] MEDS: Vitamin E 200 UNIT (90MG) CAPSULE PO SCH (09:18)
[2020-06-16] MEDS: Magnesium Oxide 400 MG TABLET PO SCH ×2 (09:18→20:48)
[2020-06-16] MEDS: predniSONE 10 MG TABLET PO SCH (09:18)
[2020-06-16] MEDS: Isosorbide MONOnitrate (24 HR) 30 MG TAB.ER.24H PO SCH (09:18)
[2020-06-16] MEDS: Loratadine 10 MG TABLET PO SCH (09:18)
[2020-06-16] MEDS: Gabapentin 300 MG CAPSULE PO SCH ×3 (09:18→20:50)
[2020-06-16] MEDS: Budesonide/Formoterol 160/4.5 1 PUFF INH IH SCH ×3 (10:13→22:43)
[2020-06-16] MEDS: Azithromycin 500 MG in 0.9 % Sodium Chloride 250 ML IVPB SCH (17:46)
[2020-06-16] MEDS: *HR* LORazepam 1 MG TABLET PO PRN (20:51)
[2020-06-16] MEDS: Melatonin 3 MG TABLET PO SCH (22:23)
[2020-06-17] MEDS: Cefepime HCl 1,000 MG in Water for inj. (sterile) 10 ML IVP SCH ×4 (01:28→23:48)
[2020-06-17] MEDS: Ipratropium/Albuterol Neb 3 ML IH SCH ×4 (03:45→21:51)
[2020-06-17 04:11] LABS: Basophils % 0.5 %; Hemoglobin 8.2 g/dL (11.5-15.4); Mean Corpuscular Hemoglobin 31.3 pg (28.0-33.3); Platelet Count 114 K/mcL (140-400); Red Blood Count 2.62 M/mcL (3.82-4.97)
[2020-06-17 04:13] LABS: Basophils # 0.2 K/mcL (0.0-0.2); Hematocrit 25.3 % (35.3-44.9); Immature Granulocytes % 10.5 % (0-4); Lymphocytes # 2.6 K/mcL (0.6-4.6); Lymphocytes % 8.8 %; Mean Corpuscular HGB Conc 32.4 g/dL (31.6-35.5); Mean Corpuscular Volume 96.6 fL (83.0-100.0); Mean Platelet Volume 11.6 fL (9.4-12.4); Monocytes # 2.2 K/mcL (0.0-1.3); Monocytes % 7.5 %; Neutrophils # 21.3 K/mcL (1.6-8.9); Red Cell Distribution Width 15.7 % (11.5-14.5); Segmented Neutrophils % 72.7 %; White Blood Count 29.3 K/mcL (4.3-11.1)
[2020-06-17 04:51] LABS: BUN/Creatinine Ratio 11 (6-26); Blood Urea Nitrogen 12 mg/dL (8-23); Calcium 8.2 mg/dL (8.6-10.3); Carbon Dioxide 22 mEq/L (23-29); Chloride 109 mEq/L (98-107); Glucose 69 mg/dL (70-105); Magnesium 1.9 mg/dL (1.6-2.6); Osmolality,Calculated 288 (280-300); Potassium 4.5 mEq/L (3.5-5.1); Sodium 140 mEq/L (136-145); eGFR For African Americans > 60 (> 60); eGFR For Non-African Americans 50 (> 60)
[2020-06-17 06:03] LABS: Hypochromasia Present (Not Present); Platelet Estimate Slight Decrease (Normal)
[2020-06-17 06:04] LABS: Polychromasia 1+ (Not Present); Toxic Granulation Present (Not Present)
[2020-06-17] MEDS: Vitamin B Complex/Vit C/Vit E 1 EACH TABLET PO SCH (08:35)
[2020-06-17] MEDS: Magnesium Oxide 400 MG TABLET PO SCH ×2 (08:35→20:05)
[2020-06-17] MEDS: Vitamin E 200 UNIT (90MG) CAPSULE PO SCH (08:35)
[2020-06-17] MEDS: Cholecalciferol (D-3) 1,000 UNIT (25MCG) TABLET PO SCH (08:35)
[2020-06-17] MEDS: predniSONE 10 MG TABLET PO SCH (08:35)
[2020-06-17] MEDS: Loratadine 10 MG TABLET PO SCH (08:35)
[2020-06-17] MEDS: Lactobacillus 1 EACH CAP.SPRINK PO SCH ×2 (08:35→20:05)
[2020-06-17] MEDS: Gabapentin 300 MG CAPSULE PO SCH ×3 (08:36→20:07)
[2020-06-17] MEDS: Bumetanide 1 MG TABLET PO SCH (08:36)
[2020-06-17] MEDS: Budesonide/Formoterol 160/4.5 1 PUFF INH IH SCH ×2 (10:35→21:51)
[2020-06-17] MEDS: Isosorbide MONOnitrate (24 HR) 30 MG TAB.ER.24H PO SCH (11:11)
[2020-06-17] MEDS: Vancomycin 1,250 MG/262.5 ML IV.SOLN IVPB SCH (11:16)
[2020-06-17] MEDS: Azithromycin 500 MG in 0.9 % Sodium Chloride 250 ML IVPB SCH (17:49)
[2020-06-17] MEDS: Melatonin 3 MG TABLET PO SCH (20:05)
[2020-06-17] MEDS: *HR* LORazepam 1 MG TABLET PO PRN (20:11)
[2020-06-18] MEDS: Ipratropium/Albuterol Neb 3 ML IH SCH ×4 (04:28→22:40)
[2020-06-18 07:10] LABS: BUN/Creatinine Ratio 14 (6-26); Blood Urea Nitrogen 15 mg/dL (8-23); Carbon Dioxide 26 mEq/L (23-29); Chloride 107 mEq/L (98-107); Glucose 75 mg/dL (70-105); Magnesium 1.7 mg/dL (1.6-2.6); Osmolality,Calculated 292 (280-300); Potassium 3.9 mEq/L (3.5-5.1); Sodium 141 mEq/L (136-145); eGFR For African Americans > 60 (> 60); eGFR For Non-African Americans 51 (> 60)
[2020-06-18] MEDS: Vitamin E 200 UNIT (90MG) CAPSULE PO SCH (09:08)
[2020-06-18] MEDS: Cholecalciferol (D-3) 1,000 UNIT (25MCG) TABLET PO SCH (09:08)
[2020-06-18] MEDS: Bumetanide 1 MG TABLET PO SCH (09:08)
[2020-06-18] MEDS: Isosorbide MONOnitrate (24 HR) 30 MG TAB.ER.24H PO SCH (09:08)
[2020-06-18] MEDS: Magnesium Oxide 400 MG TABLET PO SCH ×2 (09:09→21:19)
[2020-06-18] MEDS: Lactobacillus 1 EACH CAP.SPRINK PO SCH ×2 (09:09→21:21)
[2020-06-18] MEDS: Loratadine 10 MG TABLET PO SCH (09:09)
[2020-06-18] MEDS: Gabapentin 300 MG CAPSULE PO SCH ×3 (09:09→21:18)
[2020-06-18] MEDS: Vitamin B Complex/Vit C/Vit E 1 EACH TABLET PO SCH (09:09)
[2020-06-18] MEDS: predniSONE 10 MG TABLET PO SCH (09:09)
[2020-06-18] MEDS: Cefepime HCl 1,000 MG in Water for inj. (sterile) 10 ML IVP SCH ×2 (09:10→17:09)
[2020-06-18] MEDS: Budesonide/Formoterol 160/4.5 1 PUFF INH IH SCH ×2 (09:22→22:39)
[2020-06-18] MEDS: Vancomycin 1,250 MG/262.5 ML IV.SOLN IVPB SCH (12:13)
[2020-06-18] MEDS: Azithromycin 500 MG in 0.9 % Sodium Chloride 250 ML IVPB SCH (17:09)
[2020-06-18] MEDS: Melatonin 3 MG TABLET PO SCH (21:19)
[2020-06-19] MEDS: Cefepime HCl 1,000 MG in Water for inj. (sterile) 10 ML IVP SCH ×2 (00:31→09:20)
[2020-06-19] MEDS: Ipratropium/Albuterol Neb 3 ML IH SCH ×3 (04:21→15:26)
[2020-06-19 06:03] LABS: Calcium 9.4 mg/dL (8.6-10.3); Magnesium 1.7 mg/dL (1.6-2.6); Potassium 4.2 mEq/L (3.5-5.1)
[2020-06-19 07:22] LABS: Eosinophils % 0.2 %; Immature Granulocytes % 2.7 % (0-4); Nucleated Red Blood Cells 0.5 /100 WBC (0)
[2020-06-19 07:23] LABS: Basophils # 0.1 K/mcL (0.0-0.2); Basophils % 0.4 %; Hemoglobin 8.7 g/dL (11.5-15.4); Immature Platelets 9.1 % (1.1-6.1); Lymphocytes % 11.4 %; Mean Corpuscular HGB Conc 32.2 g/dL (31.6-35.5); Mean Corpuscular Hemoglobin 31.1 pg (28.0-33.3); Mean Corpuscular Volume 96.4 fL (83.0-100.0); Mean Platelet Volume 11.4 fL (9.4-12.4); Monocytes # 1.7 K/mcL (0.0-1.3); Monocytes % 9.4 %; Neutrophils # 13.3 K/mcL (1.6-8.9); Platelet Count 212 K/mcL (140-400); Segmented Neutrophils % 75.9 %; White Blood Count 17.5 K/mcL (4.3-11.1)
[2020-06-19] MEDS: Lactobacillus 1 EACH CAP.SPRINK PO SCH (09:20)
[2020-06-19] MEDS: Cholecalciferol (D-3) 1,000 UNIT (25MCG) TABLET PO SCH (09:20)
[2020-06-19] MEDS: Magnesium Oxide 400 MG TABLET PO SCH (09:20)
[2020-06-19] MEDS: predniSONE 10 MG TABLET PO SCH (09:20)
[2020-06-19] MEDS: Loratadine 10 MG TABLET PO SCH (09:20)
[2020-06-19] MEDS: Vitamin B Complex/Vit C/Vit E 1 EACH TABLET PO SCH (09:20)
[2020-06-19] MEDS: Vitamin E 200 UNIT (90MG) CAPSULE PO SCH (09:21)
[2020-06-19] MEDS: Bumetanide 1 MG TABLET PO SCH (09:21)
[2020-06-19] MEDS: Gabapentin 300 MG CAPSULE PO SCH ×2 (09:21→14:04)
[2020-06-19] MEDS: Isosorbide MONOnitrate (24 HR) 30 MG TAB.ER.24H PO SCH (09:21)
[2020-06-19] MEDS: Budesonide/Formoterol 160/4.5 1 PUFF INH IH SCH (09:58)
[2020-06-19 14:58] VITALS: BP 135/79
[2020-06-19 18:01] LABS: Adenovirus Not Detected (Not Detect); Bordetella Pertussis Not Detected (Not Detect); Chlamydophila pneumoniae Not Detected (Not Detect); Coronavirus 229E Not Detected (Not Detect); Coronavirus HKU1 Not Detected (Not Detect); Coronavirus NL63 Not Detected (Not Detect); Coronavirus OC43 Not Detected (Not Detect); Human Metapneumovirus Not Detected (Not Detect); Human Rhinovirus/Enterovirus Not Detected (Not Detect); Influenza A Subtype 2009 H1 Not Detected (Not Detect); Influenza B Not Detected (Not Detect); Mycoplasma pneumoniae Not Detected (Not Detect); Parainfluenza Virus 1 Not Detected (Not Detect); Parainfluenza Virus 2 Not Detected (Not Detect); Parainfluenza Virus 3 Not Detected (Not Detect); Parainfluenza Virus 4 Not Detected (Not Detect); Respiratory Syncytial Virus Not Detected (Not Detect); SARS-CoV-2 Not Detected (Not Detect)
== END 2020-06-19 19:03 | disposition critical access hospital (66) | DRG 871 ==
LOC: 2NNU 09:03 → EMEROOARM 09:03 → SUATTDRO 11:31 → 2NNU 12:38 → SUATTDRO 06-12 18:19 → 3ANU 06-16 21:45
PROVIDERS: ADMIT Internal Medicine; ATTEND Pharmacist

== ENCOUNTER 2020-08-28 22:18 | Inpatient (IN) ==
[2020-08-28] MEDS ORDERED: Ipratropium/Albuterol Neb 3 ML IH ONE (22:42)
[2020-08-28] MEDS ORDERED: Vancomycin 2,000 MG/520 ML IV.SOLN IVPB ONE (22:47)
[2020-08-28] MEDS ORDERED: MetroNIDAZOLE 500 MG/100 ML 500 MG/100 ML BAG IVPB ONE (22:47)
[2020-08-28] MEDS ORDERED: Azithromycin 500 MG in 0.9 % Sodium Chloride 250 ML IVPB ONE (22:48)
[2020-08-28] MEDS ORDERED: Cefepime HCl 2,000 MG in 0.9 % Sodium Chloride Mini Bag 100 ML IVPB ONE (23:00)
[2020-08-28] MEDS ORDERED: Ondansetron 4 MG/2 ML VIAL IVP ONE (23:03)
[2020-08-28 23:29] LABS: Basophils % 0.1 %; Eosinophils # 0.1 K/mcL (0.0-0.6); Eosinophils % 1.1 %; Hematocrit 28.3 % (35.3-44.9); Hemoglobin 8.7 g/dL (11.5-15.4); Immature Granulocytes % 0.3 % (0-4); Lymphocytes # 1.4 K/mcL (0.6-4.6); Lymphocytes % 19.3 %; Mean Corpuscular HGB Conc 30.7 g/dL (31.6-35.5); Mean Corpuscular Hemoglobin 33.1 pg (28.0-33.3); Mean Corpuscular Volume 107.6 fL (83.0-100.0); Mean Platelet Volume 9.3 fL (9.4-12.4); Monocytes # 0.4 K/mcL (0.0-1.3); Monocytes % 4.9 %; Neutrophils # 5.3 K/mcL (1.6-8.9); Platelet Count 297 K/mcL (140-400); Red Blood Count 2.63 M/mcL (3.82-4.97); Red Cell Distribution Width 14.1 % (11.5-14.5); Segmented Neutrophils % 74.3 %; White Blood Count 7.1 K/mcL (4.3-11.1)
[2020-08-28 23:37] LABS: INR 1.2; Prothrombin Time 13.6 Seconds (9.4-12.1)
[2020-08-28 23:40] LABS: Activated Partial Thrombo Time 24.2 Seconds (26.0-36.0)
[2020-08-28 23:52] LABS: Albumin 3.4 g/dL (3.5-5.7); Albumin/Globulin Ratio 1.2 (1.1-2.2); Bilirubin,Direct 0.2 mg/dL (0.0-0.2); Bilirubin,Indirect 0.3 mg/dL (0.0-1.0); Bilirubin,Total 0.5 mg/dL (0.3-1.0); Calcium 9.5 mg/dL (8.6-10.3); Globulin 2.8 g/dL (2.4-3.5); Magnesium 1.3 mg/dL (1.6-2.6); Phosphorous 3.3 mg/dL (2.7-4.5); Potassium 3.5 mEq/L (3.5-5.1); Total Protein 6.2 g/dL (6.4-8.9); Troponin I 0.03 ng/mL (< 0.04)
[2020-08-29 01:36] LABS: Bacteria,Urine Few per hpf (None-Few); Bilirubin,Urine Negative (Negative); Blood,Urine Moderate (Negative); Budding Yeast,Urine Few per hpf (None Seen); Clarity,Urine Turbid (Clear); Color,Urine Yellow (Yellow); Glucose,Urine (UA) Normal (Normal); Hyaline Casts,Urine Few per lpf (None Seen); Ketones,Urine Negative (Negative); Leukocyte Esterase,Urine Negative (Negative); Mucus,Urine Few per lpf (None-Few); Nitrite,Urine Negative (Negative); Protein,Urine Negative (Neg-Trace); RBC,Urine 30-50 per hpf (0-3); Specific Gravity,Urine 1.018 (1.010-1.025); Squamous Epithelial Cell,Urine Few per hpf (None-Few); Urobilinogen,Urine Normal (Normal)
[2020-08-29] MEDS ORDERED: *HR* OxyCODONE Immed Rel 5 MG TABLET PO ONE (02:06)
[2020-08-29] MEDS ORDERED: 0.9 % Sodium Chloride 500 ML IVC ONE ×2 (02:10→07:41)
[2020-08-29] MEDS ORDERED: Naloxone 0.4 MG/ML INJ IVP PRN (03:27)
[2020-08-29 05:08] LABS: Basophils % 0.2 %; Eosinophils % 0.5 %; Hematocrit 25.7 % (35.3-44.9); Immature Granulocytes % 0.3 % (0-4); Lymphocytes # 1.1 K/mcL (0.6-4.6); Mean Corpuscular HGB Conc 31.1 g/dL (31.6-35.5); Mean Corpuscular Hemoglobin 32.8 pg (28.0-33.3); Mean Corpuscular Volume 105.3 fL (83.0-100.0); Mean Platelet Volume 8.9 fL (9.4-12.4); Monocytes # 0.3 K/mcL (0.0-1.3); Monocytes % 4.2 %; Neutrophils # 4.6 K/mcL (1.6-8.9); Platelet Count 266 K/mcL (140-400); Red Blood Count 2.44 M/mcL (3.82-4.97); Red Cell Distribution Width 14.1 % (11.5-14.5); Segmented Neutrophils % 76.8 %
[2020-08-29 05:30] LABS: Calcium 8.9 mg/dL (8.6-10.3); Magnesium 1.8 mg/dL (1.6-2.6); Potassium 3.4 mEq/L (3.5-5.1)
[2020-08-29] MEDS: *HR* Enoxaparin 30 MG/0.3 ML SYRINGE SQ SCH (07:24)
[2020-08-29] MEDS: Ondansetron 4 MG/2 ML VIAL IVP PRN ×2 (08:55→21:38)
[2020-08-29] MEDS: Cefepime HCl 1,000 MG in 0.9 % Sodium Chloride Mini Bag 100 ML IVPB SCH ×2 (11:44→23:54)
[2020-08-29] MEDS: Albumin 25% 25gram/100mL 25 GM/100 ML IV.SOLN IVC SCH ×2 (11:45→14:06)
[2020-08-29] MEDS: *HR* OxyCODONE Immed Rel 5 MG TABLET PO PRN (14:05)
[2020-08-29] MEDS ORDERED: Prochlorperazine 10 MG/2 ML VIAL IVP ONE (14:19)
[2020-08-29] MEDS: Acetaminophen 325 MG TABLET PO PRN (16:04)
[2020-08-29] MEDS: 0.9 % Sodium Chloride 1,000 ML IVC SCH (18:06)
[2020-08-29] MEDS ORDERED: Nystatin POWDER 30 GM BOTTLE TP PRN (18:52)
[2020-08-29] MEDS: Lactobacillus 1 EACH CAP.SPRINK PO SCH (21:38)
[2020-08-29] MEDS: Gabapentin 300 MG CAPSULE PO SCH (21:38)
[2020-08-29] MEDS: Melatonin 3 MG TABLET PO SCH (21:38)
[2020-08-29] MEDS: Magnesium Oxide 400 MG TABLET PO SCH (21:39)
[2020-08-29] MEDS: Ipratropium/Albuterol Neb 3 ML IH PRN (21:47)
[2020-08-30] MEDS: *HR* OxyCODONE Immed Rel 5 MG TABLET PO PRN ×2 (01:05→19:38)
[2020-08-30 02:31] LABS: Basophils % 0.5 %; Eosinophils # 0.2 K/mcL (0.0-0.6); Eosinophils % 3.4 %; Hematocrit 24.2 % (35.3-44.9); Hemoglobin 7.9 g/dL (11.5-15.4); Immature Granulocytes % 0.2 % (0-4); Lymphocytes # 0.7 K/mcL (0.6-4.6); Lymphocytes % 16.4 %; Mean Corpuscular HGB Conc 32.6 g/dL (31.6-35.5); Mean Corpuscular Hemoglobin 34.3 pg (28.0-33.3); Mean Corpuscular Volume 105.2 fL (83.0-100.0); Monocytes # 0.2 K/mcL (0.0-1.3); Monocytes % 4.8 %; Neutrophils # 3.3 K/mcL (1.6-8.9); Platelet Count 224 K/mcL (140-400); Red Cell Distribution Width 14.3 % (11.5-14.5); Segmented Neutrophils % 74.7 %; White Blood Count 4.4 K/mcL (4.3-11.1)
[2020-08-30 02:47] LABS: Albumin 3.4 g/dL (3.5-5.7); Albumin/Globulin Ratio 1.6 (1.1-2.2); Bilirubin,Total 0.5 mg/dL (0.3-1.0); Calcium 8.7 mg/dL (8.6-10.3); Globulin 2.1 g/dL (2.4-3.5); Potassium 3.7 mEq/L (3.5-5.1); Total Protein 5.5 g/dL (6.4-8.9)
[2020-08-30] MEDS: Ipratropium/Albuterol Neb 3 ML IH PRN ×2 (04:34→07:56)
[2020-08-30] MEDS: Aspirin 81 MG TAB.CHEW PO SCH (08:27)
[2020-08-30] MEDS: Lactobacillus 1 EACH CAP.SPRINK PO SCH ×2 (08:27→21:51)
[2020-08-30] MEDS: predniSONE 10 MG TABLET PO SCH (08:27)
[2020-08-30] MEDS: Vitamin B Complex/Vit C/Vit E 1 EACH TABLET PO SCH (08:28)
[2020-08-30] MEDS: Magnesium Oxide 400 MG TABLET PO SCH ×2 (08:28→21:52)
[2020-08-30] MEDS: Cholecalciferol (D-3) 1,000 UNIT (25MCG) TABLET PO SCH (08:28)
[2020-08-30] MEDS: Vitamin E 200 UNIT (90MG) CAPSULE PO SCH (08:28)
[2020-08-30] MEDS: Acetaminophen 325 MG TABLET PO PRN (08:28)
[2020-08-30] MEDS: Loratadine 10 MG TABLET PO SCH (08:28)
[2020-08-30] MEDS: Ondansetron 4 MG/2 ML VIAL IVP PRN ×3 (08:29→19:38)
[2020-08-30] MEDS: Gabapentin 300 MG CAPSULE PO SCH ×3 (08:29→21:52)
[2020-08-30] MEDS: 0.9 % Sodium Chloride 1,000 ML IVC SCH ×2 (08:30→23:32)
[2020-08-30] MEDS: *HR* Enoxaparin 30 MG/0.3 ML SYRINGE SQ SCH (08:31)
[2020-08-30] MEDS: (Ezetimibe [Zetia] 10 MG Tablet) PO SCH (08:32)
[2020-08-30] MEDS: (Roflumilast [Daliresp] 500 MCG Tablet) PO SCH (08:32)
[2020-08-30] MEDS ORDERED: Azithromycin 500 MG in 0.9 % Sodium Chloride 250 ML IVPB SCH (09:00)
[2020-08-30 10:13] LABS: Adenovirus Not Detected (Not Detect); Bordetella Pertussis Not Detected (Not Detect); Chlamydophila pneumoniae Not Detected (Not Detect); Coronavirus 229E Not Detected (Not Detect); Coronavirus HKU1 Not Detected (Not Detect); Coronavirus NL63 Not Detected (Not Detect); Coronavirus OC43 Not Detected (Not Detect); Human Metapneumovirus Not Detected (Not Detect); Human Rhinovirus/Enterovirus Not Detected (Not Detect); Influenza A Subtype 2009 H1 Not Detected (Not Detect); Influenza B Not Detected (Not Detect); Mycoplasma pneumoniae Not Detected (Not Detect); Parainfluenza Virus 1 Not Detected (Not Detect); Parainfluenza Virus 2 Not Detected (Not Detect); Parainfluenza Virus 3 Not Detected (Not Detect); Parainfluenza Virus 4 Not Detected (Not Detect); Respiratory Syncytial Virus Not Detected (Not Detect); SARS-CoV-2 Not Detected (Not Detect)
[2020-08-30] MEDS: Cefepime HCl 1,000 MG in 0.9 % Sodium Chloride Mini Bag 100 ML IVPB SCH ×2 (11:50→23:32)
[2020-08-30] MEDS ORDERED: Ipratropium/Albuterol Neb 3 ML IH SCH (12:00)
[2020-08-30] MEDS: Melatonin 3 MG TABLET PO SCH (21:52)
[2020-08-30] MEDS: *HR* LORazepam 1 MG TABLET PO SCH (21:52)
[2020-08-31] MEDS: Ipratropium/Albuterol Neb 3 ML IH PRN ×2 (04:05→21:26)
[2020-08-31 04:14] LABS: BUN/Creatinine Ratio 17 (6-26); Blood Urea Nitrogen 15 mg/dL (8-23); Calcium 8.4 mg/dL (8.6-10.3); Carbon Dioxide 21 mEq/L (23-29); Chloride 107 mEq/L (98-107); Glucose 89 mg/dL (70-105); Osmolality,Calculated 286 (280-300); Potassium 4.1 mEq/L (3.5-5.1); Sodium 138 mEq/L (136-145); eGFR For African Americans > 60 (> 60); eGFR For Non-African Americans > 60 (> 60)
[2020-08-31] MEDS ORDERED: Vancomycin 1,500 MG/265 ML IV.SOLN IVPB ONE (04:32)
[2020-08-31] MEDS: Acetaminophen 325 MG TABLET PO PRN ×2 (05:25→14:33)
[2020-08-31] MEDS: Aspirin 81 MG TAB.CHEW PO SCH (10:18)
[2020-08-31] MEDS: Magnesium Oxide 400 MG TABLET PO SCH ×2 (10:18→20:25)
[2020-08-31] MEDS: Vitamin B Complex/Vit C/Vit E 1 EACH TABLET PO SCH (10:18)
[2020-08-31] MEDS: Lactobacillus 1 EACH CAP.SPRINK PO SCH ×2 (10:18→20:24)
[2020-08-31] MEDS: Vitamin E 200 UNIT (90MG) CAPSULE PO SCH (10:19)
[2020-08-31] MEDS: predniSONE 10 MG TABLET PO SCH (10:19)
[2020-08-31] MEDS: Cholecalciferol (D-3) 1,000 UNIT (25MCG) TABLET PO SCH (10:19)
[2020-08-31] MEDS: (Ezetimibe [Zetia] 10 MG Tablet) PO SCH (10:20)
[2020-08-31] MEDS: (Roflumilast [Daliresp] 500 MCG Tablet) PO SCH (10:20)
[2020-08-31] MEDS: Loratadine 10 MG TABLET PO SCH (10:20)
[2020-08-31] MEDS: Gabapentin 300 MG CAPSULE PO SCH ×3 (10:20→20:23)
[2020-08-31] MEDS: *HR* Enoxaparin 30 MG/0.3 ML SYRINGE SQ SCH (10:40)
[2020-08-31] MEDS: Cefepime HCl 1,000 MG in 0.9 % Sodium Chloride Mini Bag 100 ML IVPB SCH ×3 (10:40→23:35)
[2020-08-31] MEDS: 0.9 % Sodium Chloride 1,000 ML IVC SCH ×2 (16:10→23:33)
[2020-08-31] MEDS: *HR* LORazepam 1 MG TABLET PO SCH (20:25)
[2020-08-31] MEDS: Melatonin 3 MG TABLET PO SCH (20:25)
[2020-08-31] MEDS: *HR* OxyCODONE Immed Rel 5 MG TABLET PO PRN (20:40)
[2020-09-01 06:23] LABS: Hematocrit 27.9 % (35.3-44.9); Mean Corpuscular HGB Conc 32.3 g/dL (31.6-35.5); Mean Corpuscular Hemoglobin 34.1 pg (28.0-33.3); Mean Corpuscular Volume 105.7 fL (83.0-100.0); Mean Platelet Volume 10.6 fL (9.4-12.4); Platelet Count 144 K/mcL (140-400); Red Blood Count 2.64 M/mcL (3.82-4.97); Red Cell Distribution Width 13.9 % (11.5-14.5); White Blood Count 5.2 K/mcL (4.3-11.1)
[2020-09-01 07:01] LABS: BUN/Creatinine Ratio 16 (6-26); Blood Urea Nitrogen 14 mg/dL (8-23); Calcium 8.7 mg/dL (8.6-10.3); Carbon Dioxide 18 mEq/L (23-29); Chloride 110 mEq/L (98-107); Glucose 91 mg/dL (70-105); Magnesium 1.8 mg/dL (1.6-2.6); Osmolality,Calculated 284 (280-300); Potassium 4.5 mEq/L (3.5-5.1); Sodium 137 mEq/L (136-145); eGFR For African Americans > 60 (> 60); eGFR For Non-African Americans > 60 (> 60)
[2020-09-01] MEDS: Cefepime HCl 1,000 MG in 0.9 % Sodium Chloride Mini Bag 100 ML IVPB SCH (07:30)
[2020-09-01] MEDS: Cholecalciferol (D-3) 1,000 UNIT (25MCG) TABLET PO SCH (07:31)
[2020-09-01] MEDS: Magnesium Oxide 400 MG TABLET PO SCH (07:32)
[2020-09-01] MEDS: *HR* OxyCODONE Immed Rel 5 MG TABLET PO PRN (07:32)
[2020-09-01] MEDS: Aspirin 81 MG TAB.CHEW PO SCH (07:32)
[2020-09-01] MEDS: Lactobacillus 1 EACH CAP.SPRINK PO SCH (07:32)
[2020-09-01] MEDS: Loratadine 10 MG TABLET PO SCH (07:32)
[2020-09-01] MEDS: Vitamin B Complex/Vit C/Vit E 1 EACH TABLET PO SCH (07:32)
[2020-09-01] MEDS: Gabapentin 300 MG CAPSULE PO SCH (07:33)
[2020-09-01] MEDS: (Ezetimibe [Zetia] 10 MG Tablet) PO SCH (07:33)
[2020-09-01] MEDS: predniSONE 10 MG TABLET PO SCH (07:33)
[2020-09-01] MEDS: Vitamin E 200 UNIT (90MG) CAPSULE PO SCH (07:33)
[2020-09-01] MEDS: (Roflumilast [Daliresp] 500 MCG Tablet) PO SCH (07:33)
[2020-09-01] MEDS: *HR* Enoxaparin 30 MG/0.3 ML SYRINGE SQ SCH (07:34)
[2020-09-01 10:48] VITALS: BP 113/68
== END 2020-09-01 13:02 | disposition hospice, home (50) | DRG 871 ==
LOC: 3ANU 22:18 → EMEROOARM 22:18 → SUATTDRO 08-29 02:22 → 3ANU 08-29 03:27 → SUATTDRO 08-29 16:55 → 2ANU 08-31 18:47
PROVIDERS: ADMIT Student in an Organized Health Care Education/Training Program; ATTEND Internal Medicine